=== PATIENT | male | born 1950 | race Caucasian/White ===

== ENCOUNTER 2017-09-27 10:20 | Outpatient (CLI) | payer MEDICARE, MEDICAID ==
[2017-09-27 11:56] LABS: INR-International Normal Ratio 1.1; Prothrombin Time 14.7 SEC (12.0-14.7)
[2017-09-27 11:57] LABS: Hemoglobin 9.9 g/dL (14.0-18.0); Mean Corpuscular HGB CONC 29.8 g/dL (32.0-36.0); Mean Corpuscular Hemoglobin 26.7 pg (27.0-31.0); Mean Corpuscular Volume 89.7 fl (80.0-94.0); Mean Platelet Volume 7.7 fL (7.4-10.4); PTT 30.7 SEC (22.9-36.1); Platelet Count 237 thou/uL (130-400); RBC Distribution Width 13.4 % (11.5-14.5); Red Blood Cell (RBC) Count 3.72 mill/uL (4.70-6.10); White Blood Cell (WBC) Count 5.2 thou/uL (4.8-10.8)
[2017-09-27 12:17] LABS: ALT (SGPT) 16 U/L (8-55); AST (SGOT) 13 U/L (5-34); Albumin 3.8 g/dL (3.4-4.8); Alkaline Phosphatase 51 U/L (40-150); Anion Gap 13 mmol/L (10-20); BUN (Urea Nitrogen) 22 mg/dL (8.4-25.7); Bilirubin, Total 0.5 mg/dL (0.2-1.2); Calc. Creatinine Clearance 0 mL/min (70-130); Calcium 9.1 mg/dL (7.8-10.44); Carbon Dioxide 29 mmol/L (23-31); Chloride 103 mmol/L (98-107); Estimated GFR-MDRD 48; Globulin 2.6 g/dL (2.4-3.5); Glucose 131 mg/dL (80-115); Potassium 4.1 mmol/L (3.5-5.1); Protein, Total 6.4 g/dL (5.8-8.1); Sodium 141 mmol/L (136-145)
--- NOTE | 2017-09-27 15:31 | EKG ---
Test Reason : Blood Pressure : / mmHG Vent. Rate : 074 BPM Atrial Rate : 074 BPM P-R Int : 186 ms QRS Dur : 096 ms QT Int : 408 ms P-R-T Axes : 031 119 050 degrees QTc Int : 452 ms Normal sinus rhythm Low voltage QRS Left posterior fascicular block Cannot rule out Anterior infarct (cited on or before 19-JUL-2013) Abnormal ECG Confirmed by GIOVANNY MOY ([id number]) on 09/27/2017 3:30:55 PM Referred By: HI Confirmed By:GIOVANNY MOY
== END 2017-09-27 10:21 | disposition home or self-care (01) ==
LOC: LABBT 10:20
PROVIDERS: ATTEND Internal Medicine Cardiovascular Disease
DX: Z01.818 Encounter for other preprocedural examination (principal); R94.39 Abnormal result of other cardiovascular function study
CPT/HCPCS: 80053; 85027; 85610; 85730; 93005; 93010

== ENCOUNTER 2017-09-29 05:52 | Day surgery (SDC) | payer MEDICARE, MEDICAID ==
[2017-09-27 10:54] VITALS: BMI 40.1
[2017-09-29] MEDS ORDERED: Lidocaine 1% (PF) 30 ML VIAL ONE (06:43)
[2017-09-29] MEDS ORDERED: Promethazine 25 MG TAB ONE (06:49)
[2017-09-29] MEDS ORDERED: Diazepam 5 MG TAB ONE (06:49)
[2017-09-29 07:09] LABS: Cardiac Risk 3.7 (Less than 4.5)
[2017-09-29] MEDS ORDERED: Fentanyl 100 MCG/2 ML VIAL ONE (07:12)
[2017-09-29] MEDS ORDERED: Midazolam HCl 2 mg/2 ml Vial ONE (07:14)
[2017-09-29] MEDS ORDERED: Heparin 10,000 UNITS/1 ML VIAL ONE (07:54)
[2017-09-29] MEDS ORDERED: Iopamidol 370 76% 100 ML VIAL ONE (09:11)
== END 2017-09-29 13:10 | disposition home or self-care (01) ==
LOC: CCL 05:52
PROVIDERS: ATTEND Internal Medicine Cardiovascular Disease
PROC: 4A023N7 Measurement of Cardiac Sampling and Pressure, Left Heart, Percutaneous Approach (ICD-10-PCS; principal; 2017-09-29)
DX: I25.10 Atherosclerotic heart disease of native coronary artery without angina pectoris (principal); I25.2 Old myocardial infarction; I11.0 Hypertensive heart disease with heart failure; I50.20 Unspecified systolic (congestive) heart failure; E11.9 Type 2 diabetes mellitus without complications; E78.5 Hyperlipidemia, unspecified; Z79.82 Long term (current) use of aspirin; Z79.84 Long term (current) use of oral hypoglycemic drugs; Z79.899 Other long term (current) drug therapy; Z87.891 Personal history of nicotine dependence; Z82.49 Family history of ischemic heart disease and other diseases of the circulatory system
CPT/HCPCS: 76942; 80061; 85347; 93458; 93571; C1760; C1769 ×3; 99152; J0153; J1644; J2001; J2250; J3010

== ENCOUNTER 2018-11-30 11:54 | Inpatient (IN) | payer MEDICARE, MEDICAID ==
[2018-11-30 12:23] LABS: INR-International Normal Ratio 1.2; PTT 30.9 SEC (22.9-36.1); Prothrombin Time 14.9 SEC (12.0-14.7)
--- NOTE | 2018-11-30 12:23 | CT ---
CT HEAD NONCONTRAST: HISTORY: Altered mental status. FINDINGS: No comparison. There is no evidence of acute intracranial hemorrhage or infarct. Mild chronic ischemi c small vessel disease within the periventricular white matter. Physiologic calcification at the basal ganglia. No mass effect or shift of midline structures. Visualized paranasal sinuses remain wel l aerated. IMPRESSION: No acute intracranial abnormalities are demonstrated. Findings were called to Dr. Martínez in the emergency department at 1220 hours. Code CR. Transcribed Date/Time: 11/30/2018 12:26 PM
[2018-11-30 12:25] LABS: #Eosinphils 0.2 thou/uL (0.0-0.7); #Lymphocytes 0.5 thou/uL (1.20-3.40); #Monocytes 0.5 thou/uL (0.11-0.59); #Neutrophils 4.1 thou/uL (1.40-6.50); %Eosinophils 3.2 % (0.0-10.0); %Lymphocytes 10.2 % (21.0-51.0); %Monocytes 9.4 % (0.0-10.0); %Neutrophils 77.2 % (42.0-75.0); Hemoglobin 10.4 g/dL (14.0-18.0); Mean Corpuscular HGB CONC 29.6 g/dL (32.0-36.0); Mean Corpuscular Volume 81.3 fL (78.0-98.0); Mean Platelet Volume 9.5 fL (7.4-10.4); Platelet Count 216 thou/uL (130-400); RBC Distribution Width 19.7 % (11.5-14.5); Red Blood Cell (RBC) Count 4.33 mill/uL (4.70-6.10); White Blood Cell (WBC) Count 5.3 thou/uL (4.8-10.8)
[2018-11-30 12:43] LABS: ALT (SGPT) 10 U/L (8-55); AST (SGOT) 17 U/L (5-34); Albumin 4.3 g/dL (3.4-4.8); Alkaline Phosphatase 82 U/L (40-150); Anion Gap 14 mmol/L (10-20); BUN (Urea Nitrogen) 19 mg/dL (8.4-25.7); Calc. Creatinine Clearance 0 mL/min (70-130); Calcium 9.5 mg/dL (7.8-10.44); Carbon Dioxide 30 mmol/L (23-31); Chloride 99 mmol/L (98-107); Estimated GFR-MDRD 44; Globulin 2.9 g/dL (2.4-3.5); Potassium 3.8 mmol/L (3.5-5.1); Protein, Total 7.2 g/dL (5.8-8.1); Sodium 139 mmol/L (136-145)
[2018-11-30 12:46] LABS: Elliptocytes SLIGHT = 2-5 cells (100X) (0-1/hpf); Glucose 36 mg/dL (80-115); Hypochromia SLIGHT = 6-15 cells (100X) (0-5/hpf); MDiff Complete? YES; Ovalocytes SLIGHT = 2-5 cells (100X) (0-1/hpf); Platelet Morphology Comment Appears Adequate; Polychromasia SLIGHT = 2-3 cells (100X) (0-2/hpf)
[2018-11-30] MEDS ORDERED: Dextrose 50% Abboject 50 ML SYRINGE ONE (12:52)
--- NOTE | 2018-11-30 14:02 | CT ---
CT CERVICAL SPINE WITHOUT IV CONTRAST: HISTORY: Neck pain. FINDINGS: There is loss of cervical lordosis with mild reversal. Multilevel degenerative changes are seen with bilateral neural foraminal stenosis at several levels. No fracture, subluxation, or facet malalignm ent is identified. IMPRESSION: Cervical spondylosis. POS: OFF
[2018-11-30] MEDS ORDERED: HumaLOG 300 UNITS/3 ML VIAL SC PRN (16:14)
[2018-11-30] MEDS ORDERED: Dextrose 5% in Water 1,000 ML IV PRN (16:14)
[2018-11-30] MEDS ORDERED: Dextrose 50% Abboject 50 ML SYRINGE SLOW IVP PRN (16:14)
[2018-11-30] MEDS ORDERED: Senokot S 8.6-50 MG TAB PO PRN (16:29)
[2018-11-30] MEDS ORDERED: Acetaminophen 325 MG TAB PO PRN (16:29)
[2018-11-30] MEDS ORDERED: HYDROcodone/Acetaminophen 5/325 mg Tablet PO PRN (16:29)
[2018-11-30] MEDS: Famotidine 20 MG TAB PO SCH (20:08)
--- NOTE | 2018-12-01 00:30 | HP ---
PRIMARY CARE PHYSICIAN: Dr. Rasheeda Eldridge in [place] CHIEF COMPLAINT: Evaluation of falls, impaired speech, weakness, family reports complaining of right-sided weakness and pain. HISTORY OF PRESENT ILLNESS: Mr. Sawyer is a 68-year-old male, who reported to the emergency room for evaluation of weakness, which really started 3 days ago, but worsened significantly today. Family said that he had slurred speech, was not acting right, was kept putting his head down, reported not feeling well. Reports chronic back pain with the pain that radiates down. He says his right leg is usually worse. The patient takes his blood sugar reading every day and reports yesterday it was 78 and today said it was 100, because his [id number] thought he was having a stroke today, so they called EMS and they brought him to the emergency room. When he initially evaluated, the patient's blood sugar read at 43, was given one amp of D50 and it has responded his blood sugar and he has also eaten. His blood sugar at last check was 78. Reports that he is on metformin 1000 mg twice a day and glipizide. The patient has a past medical history pertinent for coronary artery disease, hypertension, diabetes, and back surgery. Reports that he had a positive stress test, eventually wore a LifeVest, was transitioned off that by Dr. Solares, and eventually received defibrillator. Initial CT of the brain and cervical spine, no acute findings. NIH initially positive for a right leg drift and some dysarthria. The patient subsequently will be admitted to observation for further management. PAST MEDICAL HISTORY: ST-elevation myocardial infarction, diabetes mellitus, hypertension, systolic heart failure, and dyslipidemia. PAST SURGICAL HISTORY: Stent placement, pacemaker insertion, and two back surgeries for lumbar spine. FAMILY HISTORY: Negative for stroke or cardiac. ALLERGIES: NONE. SOCIAL HISTORY: He lives with his [id number]. REVIEW OF SYSTEMS: A 10-point review of systems is reviewed and as above, otherwise negative unless mentioned in the HPI. PHYSICAL EXAMINATION: VITAL SIGNS: Blood pressure is 144/91, pulse is 87, respirations are 20, pO2 sats of 98% on room air, and temperature 97.8. CONSTITUTIONAL: The patient is nontoxic-appearing. He is alert and oriented x3. HEENT: Head is atraumatic and normocephalic. Eyes; eyelids are normal to inspection. Pupils are equally round and reactive to light. ENT, mouth exam is normal. Mucous membranes are moist. Has poor dentition. NECK: Trachea is midline. Normal range of motion. RESPIRATORY/CHEST: Breath sounds are clear. Symmetrical movement is noted. CARDIOVASCULAR: Regular heart rate and rhythm. Heart sounds are normal. The patient does have a defibrillator, pacemaker present in the left upper chest. ABDOMEN: Nontender. Bowel sounds are heard. BACK: Normal inspection. No CVA tenderness. EXTREMITIES: Lower extremity, inspection is normal. Range of motion is normal. Motor strength is normal. Sensation is intact. Pedal pulses are equal bilaterally. NEUROLOGIC: The patient is oriented to person, place, and time. Speech has some dysarthria. Cranial nerves 2 through 12 are grossly intact. He does answer questions, but per family, he does not always know the answer to his specific health questions and family does state that his mentation is not quite at baseline. SKIN: Warm and dry. Normal in color. PSYCH: Has a normal affect. PERTINENT LABORATORY DATA: Sodium is 139, potassium 3.8, chloride is 99, carbon dioxide is 30, gap is 14, BUN is 19, creatinine is 1.58, estimated GFR is 44, glucose is currently 78, and calcium is 9.5. Liver enzymes are unremarkable. Troponin x1 is undetectable. White blood cell count is 5.3, hemoglobin is 10.4, hematocrit is 35.2, and platelet count is 216. PT 14.9, PTT is 30.9, and INR is 1.2. DIAGNOSTIC DATA: Cervical spine CT with cervical spondylosis. Head CT, no acute intracranial abnormalities. EKG in the emergency room shows normal sinus rhythm, beats per minute 82, conduction normal, ST segments normal, T-waves normal, axis is normal. ASSESSMENT AND PLAN: 1. Encephalopathy, most likely related to hypoglycemia, but concerning for right-sided deficits in fact that he is not quite it is baseline mentation after given glucose today. The fact that has been going on for several days is worrisome. We will therefore obtain an MRI if possible with his defibrillator, carotid Dopplers, and echocardiogram. 2. Hypoglycemia. We will hold his glipizide. We will add a sliding scale insulin as per coverage as needed, a.c. and at bedtime Accu-Cheks. We will re-start Glucophage in the morning if tolerated. 3. Hypertension. We will re-start home medications. We will trend. 4. Hyperlipidemia. We will re-check lipids in the morning. We will also check an A1c. 5. Deep venous thrombosis and gastrointestinal prophylaxis will be started. 6. Hospital course will depend on clinical findings. Job ID: [id number]
[2018-12-01 04:12] VITALS: BMI 38.0
[2018-12-01 05:03] LABS: #Eosinphils 0.2 thou/uL (0.0-0.7); #Lymphocytes 0.7 thou/uL (1.20-3.40); #Monocytes 0.5 thou/uL (0.11-0.59); #Neutrophils 3.3 thou/uL (1.40-6.50); %Basophils 0.8 % (0.0-1.0); %Eosinophils 3.3 % (0.0-10.0); %Lymphocytes 14.2 % (21.0-51.0); %Monocytes 9.8 % (0.0-10.0); Hemoglobin A1c 3.9 % (4.0-6.0); Mean Corpuscular HGB CONC 29.9 g/dL (32.0-36.0); Mean Corpuscular Hemoglobin 24.2 pg (27.0-31.0); Mean Platelet Volume 9.5 fL (7.4-10.4); Platelet Count 210 thou/uL (130-400); RBC Distribution Width 19.5 % (11.5-14.5); Red Blood Cell (RBC) Count 4.12 mill/uL (4.70-6.10); White Blood Cell (WBC) Count 4.6 thou/uL (4.8-10.8)
[2018-12-01 05:20] LABS: ALT (SGPT) Less than 7 U/L (8-55); AST (SGOT) 14 U/L (5-34); Albumin 3.9 g/dL (3.4-4.8); Alkaline Phosphatase 78 U/L (40-150); Anion Gap 10 mmol/L (10-20); BUN (Urea Nitrogen) 19 mg/dL (8.4-25.7); Bilirubin, Total 0.9 mg/dL (0.2-1.2); Calc. Creatinine Clearance 83 mL/min (70-130); Calcium 9.4 mg/dL (7.8-10.44); Carbon Dioxide 33 mmol/L (23-31); Cardiac Risk 3.1 (Less than 4.5); Chloride 100 mmol/L (98-107); Cholesterol 78 mg/dl (< 200 Desired); Estimated GFR-MDRD 49; Glucose 104 mg/dL (80-115); HDL Cholesterol 25 mg/dL (>60 Neg Risk); LDL Cholesterol, Calculated 39 mg/dL; Potassium 3.8 mmol/L (3.5-5.1); Protein, Total 6.9 g/dL (5.8-8.1); Sodium 139 mmol/L (136-145); Triglycerides 72 mg/dL (Less than 150)
--- NOTE | 2018-12-01 07:00 | ULT ---
CAROTID ULTRASOUND WITH GRAYSCALE AND DOPPLER DUPLEX COLORFLOW IMAGING SPECTRAL ANALYSIS PERFORMED: CLINICAL INDICATION: TIA. FINDINGS: There is no significant atherosclerotic calcification of the carotid arteries. PEAK SYSTOLIC VELOCITY (CM/S): Right CCA 62 Left CCA 64 Right ICA 57 Left ICA 44 There is antegrade flow within the visualized bilateral vertebral arteries. IMPRESSION: 1. No hemodynamically significant stenosis of the right internal carotid artery. 2. No hemodynamically significant stenosis of the left internal carotid artery. POS: CRISTAL
[2018-12-01] MEDS: Famotidine 20 MG TAB PO SCH ×2 (08:37→20:51)
[2018-12-01] MEDS ORDERED: Furosemide 40 MG/4 ML VIAL SLOW IVP SCH (09:00)
--- NOTE | 2018-12-01 11:09 | RAD ---
TWO VIEW CHEST: Comparison: 02-11-17 Indication: Elevated BNP. Shortness of breath. FINDINGS: There is enlargement of the cardiac silhouette and pulmonary vasculature. Hazy density at the inferio r left chest indicates mild pleural fluid. There is a single lead AICD traversing the left subclavian region with tip overlying the expected region of the right ventricle. IMPRESSION: Evidence of decompensated CHF. POS: AHC
[2018-12-01] MEDS ORDERED: Carvedilol 3.125 MG TAB PO SCH (17:45)
--- NOTE | 2018-12-01 18:31 | PRG ---
DATE OF SERVICE: 12/01/2018 SUBJECTIVE: Mr. Sawyer is a very pleasant 68-year-old male with past medical history significant for ischemic cardiomyopathy with last EF estimated at 20% to 25%, type 2 diabetes mellitus, coronary artery disease with left heart catheterization on 09/2017, which revealed a distal LAD 90% stenosis, not amenable to PCI, and hypertension, who presented to the hospital at the behest of his family with altered mental status and slurred speech. The patient's speech has returned to baseline, but he does remain somewhat confused. He denies any chest pain to me. He denies any shortness of breath at this time. He did have some difficulties ambulating with a walking program this morning. OBJECTIVE: VITAL SIGNS: Blood pressure 108/72, pulse is 88, O2 saturation is 94% on room air. GENERAL: The patient is awake and alert, he is oriented to person and place but not to time. He is conversative and pleasant. HEENT: Head is atraumatic and normocephalic. Mucous membranes are moist. NECK: No appreciable JVD. No carotid bruits. Trachea is midline. CV: S1 and S2. Regular rate and rhythm. No appreciable murmurs, rubs, or gallops. LUNGS: Regular respiratory rate and pattern, decreased breath sounds at the bases. No rhonchi or wheezes. No appreciable crackles. ABDOMEN: Positive bowel sounds, obese, soft, nontender. No organomegaly. EXTREMITIES: Trace edema bilaterally. Extremities appear warm and well perfused. There are no ulcers. SKIN: Warm and dry. No rashes. NEURO: His cranial nerves 2 through 12 appear to be intact. I can appreciate no focal weaknesses on either side at this time. LABORATORY DATA: White blood cell count 4.6, hemoglobin 10, hematocrit 33, platelets are 210. Sodium 139, potassium 3.8, carbon dioxide 33, creatinine 1.43, bilirubin 0.9, AST 14, ALT 7, alkaline phosphatase 78. BNP 2741. Total cholesterol 78, LDL 39, HDL 25, triglycerides 72. ASSESSMENT: 1. Altered mental status, likely secondary to combination of transient hypoglycemia at presentation, as well as possible cerebrovascular accident. 2. Ischemic cardiomyopathy s/p single chamber ICD, with worsening EF, now 10% to 15%. 3. Acute on chronic systolic congestive heart failure exacerbation, BNP >2700 4. Coronary artery disease, last left heart catheterization performed 09/2017, which showed a distal 90% LAD, a 70%, diagonal lesion with a patent stent in the mid LAD. 5. Type 2 diabetes mellitus. 6. Peripheral vascular disease. 7. Hypotension. 8. patient with single-chamber [employer] implantable cardioverter defibrillator , with normal functioning, per interrogation. 9. Chronic renal insufficiency. 10. several episodes of NSVT per device interrogation PLAN: At this time, Neurology is recommending full anticoagulation, appreciate recommendations. Given the patient's worsening EF, we will consult Cardiology for optimization of his heart failure medications in addition to appropriate full anticoagulation selection for this patient, if deemed appropriate. He may also be a candidate for Entresto. We will continue IV diuresis as kidney function permits, along with close monitoring of electrolytes. Interrogation of patient 's ICD today revealed normal functioning and several short runs of nonsustained VT. Given the patient's numerous comorbidities at this time, the patient does meet inpatient criteria. Further recommendations based on hospital course. Job ID: [id number] MTDD
[2018-12-01] MEDS: Lisinopril 10 MG TAB PO SCH (20:51)
[2018-12-01] MEDS: Simvastatin 40 MG TAB PO SCH (20:51)
--- NOTE | 2018-12-02 00:04 | CON ---
DATE OF CONSULTATION: 12/01/2018 CONSULTING PHYSICIAN: Hospitalist Services IMPRESSION: 1. Probable small vessel stroke resulting in some mild dysarthria and right facial droop. 2. Congestive heart failure with an ejection fraction of around 15%. 3. Diabetes. 4. Hypertension. 5. Hyperlipidemia. 6. Aspirin failure. PLAN: 1. I would suggest anticoagulation given his poor EF. 2. PT to assess his gait stability. HISTORY OF PRESENT ILLNESS: Mr. Sawyer is a 68-year-old man who was noted by the family to have some sudden change in his speech. They noticed some facial droop and that he was slurring his words. They brought him in for evaluation. He had a CT of the brain, which showed some small-vessel ischemic changes, but nothing acute. His laboratory studies were unremarkable including his lipid ratio of 3.1. His carotid ultrasound does not show any extracranial stenosis. He has an AICD implant and could not have an MRI. He had an echocardiogram done earlier with a preliminary result as noted above. PAST MEDICAL HISTORY: As listed above. ALLERGIES: NONE REPORTED. SOCIAL HISTORY: He dips tobacco. FAMILY HISTORY: Noncontributory. REVIEW OF SYSTEMS: Ten-system review of systems is otherwise unremarkable other than joint pain. PHYSICAL EXAMINATION: GENERAL: He is overweight, elderly man, lying in bed, in no distress. VITAL SIGNS: Blood pressure 103/65, pulse 70, respirations 20. HEENT: Pupils are equal and reactive. Conjunctivae clear. Oropharynx clear. NECK: Supple. No lymphadenopathy. EXTREMITIES: No cyanosis. NEUROLOGIC: He was alert and cooperative. His speech was mildly dysarthric. Cranial nerve exam showed a flattening of the right nasolabial fold. Sensation was intact. No fix or drift was noted. No abnormal movements were seen. Gait was not tested at this time. Plantar responses were downgoing. SUMMARY: This is an elderly man with multiple risk factors and a very poor ejection fraction. He would be at high risk for cardioembolic event. Would consult with Dr. Solares as to his choice of anticoagulation. Job ID: [id number]
[2018-12-02 06:09] LABS: #Eosinphils 0.1 thou/uL (0.0-0.7); #Lymphocytes 0.7 thou/uL (1.20-3.40); #Monocytes 0.5 thou/uL (0.11-0.59); #Neutrophils 3.3 thou/uL (1.40-6.50); %Basophils 0.6 % (0.0-1.0); %Eosinophils 2.8 % (0.0-10.0); %Lymphocytes 15.6 % (21.0-51.0); %Monocytes 10.8 % (0.0-10.0); %Neutrophils 70.2 % (42.0-75.0); Anisocytosis SLIGHT = 6-15 cells (100X) (0-5/hpf); Hemoglobin 9.8 g/dL (14.0-18.0); Hypochromia SLIGHT = 6-15 cells (100X) (0-5/hpf); MDiff Complete? YES; Mean Corpuscular HGB CONC 29.8 g/dL (32.0-36.0); Mean Corpuscular Hemoglobin 24.3 pg (27.0-31.0); Mean Corpuscular Volume 81.5 fL (78.0-98.0); Mean Platelet Volume 9.7 fL (7.4-10.4); Platelet Count 204 thou/uL (130-400); RBC Distribution Width 19.9 % (11.5-14.5); Red Blood Cell (RBC) Count 4.03 mill/uL (4.70-6.10); White Blood Cell (WBC) Count 4.7 thou/uL (4.8-10.8)
[2018-12-02 06:20] LABS: ALT (SGPT) 27 U/L (8-55); AST (SGOT) 40 U/L (5-34); Albumin 3.9 g/dL (3.4-4.8); Alkaline Phosphatase 76 U/L (40-150); Anion Gap 13 mmol/L (10-20); BUN (Urea Nitrogen) 21 mg/dL (8.4-25.7); Bilirubin, Total 1.3 mg/dL (0.2-1.2); Calc. Creatinine Clearance 88 mL/min (70-130); Calcium 9.4 mg/dL (7.8-10.44); Carbon Dioxide 27 mmol/L (23-31); Chloride 101 mmol/L (98-107); Estimated GFR-MDRD 55; Glucose 136 mg/dL (80-115); Potassium 3.9 mmol/L (3.5-5.1); Protein, Total 6.9 g/dL (5.8-8.1); Sodium 137 mmol/L (136-145)
--- NOTE | 2018-12-02 08:48 | PDOC.PN ---
- Subjective Encounter Start Date: 12/02/18 Encounter Start Time: 11:30 Subjective: Patient without further confusion. No pain. No N/V. -: No weakness/numbness. Occ difficulty word finding but -: almost back to baseline. - Objective Resuscitation Status - Order Detail: 11/30/18 16:29 Resuscitation Status Routine Co-Sign Provider: Resuscitation Status: FULL: Full Resuscitation Discussed with: Patient Additional comments: Would like son and daughters to be surrogate decision makers MAR Reviewed: Yes Vital Signs & Weight: Vital Signs (12 hours) Temp Pulse Resp BP BP Pulse Ox 12/02/18 03:12 97.6 F 89 20 127/81 98 12/01/18 23:50 97.5 F L 87 15 116/70 93 L 12/01/18 20:51 115/77 Weight Weight 255 lb 8 oz I&O: 12/01/18 12/02/18 12/03/18 06:59 06:59 06:59 Intake Total 450 1080 Output Total 400 Balance 450 680 Result Diagrams: 12/02/18 04:35 12/02/18 04:35 Additional Labs: Accuchecks 12/01/18 12/01/18 12/01/18 20:56 17:04 10:20 POC Glucose 175 H 186 H 128 H Phys Exam - Physical Examination Constitutional: NAD HEENT: moist MMs Respiratory: no wheezing, no rales, no rhonchi Cardiovascular: RRR Gastrointestinal: soft, positive bowel sounds Musculoskeletal: no edema Neurological: non-focal, moves all 4 limbs Psychiatric: normal affect, A&O x 3 Dx/Plan (1) Acute ischemic stroke Code(s): I63.9 - CEREBRAL INFARCTION, UNSPECIFIED Status: Acute Comment: symptoms improving, neurology recommending anticoagulation due to severely depressed EF, Lovenox started, cardiology consulted for recommendation on oral anticoagulant (2) Systolic CHF Code(s): I50.20 - UNSPECIFIED SYSTOLIC (CONGESTIVE) HEART FAILURE Status: Chronic Comment: EF 10-15% (3) CAD Code(s): 414.00 - CORON ATHEROSCLER NOS TYPE VESSEL, [place] OR GRAFT Status: Chronic (4) Diabetes mellitus type 2 Code(s): E11.9 - TYPE 2 DIABETES MELLITUS WITHOUT COMPLICATIONS Status: Chronic (5) Dyslipidemia Code(s): E78.5 - HYPERLIPIDEMIA, UNSPECIFIED Status: Chronic (6) Hypertension Code(s): I10 - ESSENTIAL (PRIMARY) HYPERTENSION Status: Chronic Qualifiers: Hypertension type: essential hypertension Qualified Code(s): I10 - Essential (primary) hypertension - Plan cont current plan of care, PT/OT, DVT proph w/lovenox cardiology consultation pending * . - Discharge Day Encounter end time: 10:40
[2018-12-02] MEDS ORDERED: Enoxaparin Sodium 100 MG/ML SYRINGE SC SCH (09:00)
[2018-12-02] MEDS ORDERED: Enoxaparin Sodium 120 MG/0.8 ML SYRINGE SC SCH (09:00)
[2018-12-02] MEDS: Furosemide 40 MG/4 ML VIAL SLOW IVP SCH ×2 (10:12→16:18)
[2018-12-02] MEDS: Aspirin 81 mg Enteric Coated Tablet PO SCH (10:12)
[2018-12-02] MEDS: Famotidine 20 MG TAB PO SCH ×2 (10:12→22:25)
[2018-12-02] MEDS: Spironolactone 25 MG TAB PO SCH (10:12)
[2018-12-02] MEDS: Carvedilol 3.125 MG TAB PO SCH ×2 (10:13→16:18)
--- NOTE | 2018-12-02 11:31 | PQF ---
CLINICAL DOCUMENTATION IMPROVEMENT CLARIFICATION FORM: ICD-10 Updated PLEASE DO AN ADDENDUM TO THE PROGRESS NOTE WITH ANY DOCUMENTATION UPDATES OR ADDITIONS AND CARRY THROUGH TO DC SUMMARY. THANK YOU. DATE: 12/02/18 ATTN: DR. DUMONT Please exercise your independent, professional judgment in responding to the clarification form. Clinical indicators are provided on the bottom of this form for your review Please check appropriate box(s): [ X ] Encephalopathy: Type: [ X ] Acute [ ] Subacute [ ] Chronic Etiology: [ ] Hypertensive [ X ] Metabolic [ ] Toxic [ ] Hepatic with Coma [ ] Hepatic w/o Coma [ ] Hypoxic [ ] Septic [ ] Drug induced: [ ] Unspecified [ ] in the setting of underlying dementia [ ] Other (please specify) [ ] Transient Alteration of Awareness [ ] Other diagnosis [ ] Unable to determine In addition, please specify: Present on Admission (POA): [ X ] Yes [ ] No [ ] Unable to determine For continuity of documentation, please document condition throughout progress notes and discharge summary. Thank You. 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 All Rights Reserved GILBERTO [email or web address] Office: [phone] [facility]
[2018-12-02] MEDS: Apixaban 5 MG TAB PO SCH (22:24)
[2018-12-02] MEDS: Lisinopril 10 MG TAB PO SCH (22:25)
[2018-12-02] MEDS: Simvastatin 40 MG TAB PO SCH (22:25)
--- NOTE | 2018-12-03 00:56 | CON ---
DATE OF CONSULTATION: HISTORY OF PRESENT ILLNESS: The patient is a 68-year-old gentleman with a history of an ischemic cardiomyopathy, who presented with right-sided weakness with altered mental status and right-sided weakness. The patient has a long history of coronary artery disease, he is status post PTCA and stent placement in 2012. He had a stent placed into the mid LAD. He underwent a repeat catheterization in 2018. He was felt to have medical therapy. The patient was found to have a 70% diagonal lesion, 90% distal LAD lesion, 50% mid LAD lesion and 70% left circumflex lesion. The patient was in usual state of health when he suddenly developed altered mental status and right-sided weakness. PAST MEDICAL HISTORY: 1. Coronary artery disease. 2. Hypertension. 3. Diabetes mellitus. 4. Dyslipidemia. PAST SURGICAL HISTORY: Two back surgeries. SOCIAL HISTORY: Nonsmoker. FAMILY HISTORY: Positive family history of coronary artery disease. ALLERGIES: NO KNOWN DRUG ALLERGIES. MEDICATIONS: See nursing list. PHYSICAL EXAMINATION: GENERAL: Obese gentleman, in no acute distress. VITAL SIGNS: Blood pressure of 111/80. NECK: No jugular venous distention. LUNGS: Clear to auscultation. HEART: Regular rate and rhythm. Normal S1, S2. No murmurs. ABDOMEN: Distended. EXTREMITIES: Showed mild bilateral edema. NEUROLOGIC: Weakness in his right lower extremity. LABORATORY RESULTS: Sodium 137, potassium 3.9, chloride 101, bicarb 27, BUN 21, creatinine is 1.3, glucose 136. His white blood cell count is 4.7, hemoglobin 9.8, platelets are 204. IMAGING: His EKG revealed him to have normal sinus rhythm with Q-waves suggestive of previous anterior infarct. IMPRESSION: 1. Status post cerebrovascular accident. 2. History of percutaneous transluminal coronary angioplasty and stent placement. 3. Ischemic cardiomyopathy. 4. History of automatic implantable cardioverter-defibrillator placement. 5. Hypertension. 6. Diabetes mellitus. 7. Dyslipidemia. 8. Morbid obesity. This gentleman has suffered a cerebrovascular accident. He underwent an echocardiogram, which revealed him to have a severe decrease in left ventricular systolic function. The patient may have a thromboembolism. The patient will be placed on Eliquis and continue on low-dose aspirin. We will follow this patient with you through his hospitalization. Job ID: [id number] [facility]
[2018-12-03] MEDS: Furosemide 40 MG/4 ML VIAL SLOW IVP SCH ×2 (06:43→13:45)
[2018-12-03] MEDS: Carvedilol 3.125 MG TAB PO SCH ×2 (09:02→17:16)
[2018-12-03] MEDS: Apixaban 5 MG TAB PO SCH ×2 (09:02→21:15)
[2018-12-03] MEDS: Aspirin 81 mg Enteric Coated Tablet PO SCH (09:02)
[2018-12-03] MEDS: Famotidine 20 MG TAB PO SCH ×2 (09:02→21:15)
[2018-12-03] MEDS: Spironolactone 25 MG TAB PO SCH (09:03)
[2018-12-03] MEDS: HYDROcodone/Acetaminophen 5/325 mg Tablet PO PRN ×2 (09:03→17:16)
[2018-12-03] MEDS ORDERED: metFORMIN 500 MG TAB PO SCH (10:30)
--- NOTE | 2018-12-03 10:54 | PRG ---
DATE OF SERVICE: 12/03/2018 SUBJECTIVE: The patient feels okay. He feels like he is close to his baseline. His primary complaint today is that he is having pain in his right foot. This preceded his admission for about a week. He denies any antecedent injury. OBJECTIVE: VITAL SIGNS: Temperature 97.7, pulse 86, respirations 18, O2 saturation 96% on room air, and blood pressure 122/86. GENERAL APPEARANCE: Age-appropriate male, in no distress. He was lying in bed, sleeping. Dips snuff in his mouth. Easily awakens. Otherwise, pleasant and conversant. HEENT: PERRL. No OP lesions. HEART: Regular rate and rhythm without murmurs. LUNGS: Diminished, but clear bilaterally. No wheezes or rales. ABDOMEN: Slightly protuberant, but nontender, nondistended. EXTREMITIES: Have chronic stasis dermatitis with onychomycosis and onycholysis. Pulses are present, slightly diminished. He has no significant tenderness to palpation on the right foot (indicates that primarily painful when he tries to stand on it). IMPRESSION AND PLAN: 1. Acute ischemic stroke, likely thromboembolic from cardiomyopathy on Eliquis, appears to be largely recovered. He is considering rehab. He is currently on aspirin and a statin. 2. Severe hypoglycemia appears to be improved. His blood sugars are within the reasonable range, although slightly high. He is only getting sliding-scale insulin. We will completely discontinue his glipizide and keep that off, but we will start low-dose metformin. 3. Cardiomyopathy with ejection fraction of 10% to 15%, followed by Cardiology. He has a defibrillator in place. He will stay on the Eliquis. 4. History of coronary artery disease. Again, statin and aspirin, stable. 5. Dyslipidemia. Continue the statin. 6. Hypertension. Continue home medications. 7. Right foot pain. X-ray, pending results. Consider physical therapy assistance. 8. Disposition. The patient is interested in going to rehab. We will put in a bilingual patient support caseworker consult for evaluation. Job ID: [id number]
--- NOTE | 2018-12-03 15:44 | RAD ---
RIGHT FOOT: 12/03/18 Three views. HISTORY: Foot pain. Enthesophytes from the plantar calcaneus. The tarsals are intact. The metatarsals appear intact. The re is mild extension at the MTP joints. IMPRESSION: No acute finding. POS: OFF
[2018-12-03] MEDS: metFORMIN 500 MG TAB PO SCH (17:16)
[2018-12-03] MEDS: Simvastatin 40 MG TAB PO SCH (21:15)
[2018-12-03] MEDS: Lisinopril 10 MG TAB PO SCH (21:15)
[2018-12-04] MEDS: Furosemide 40 MG/4 ML VIAL SLOW IVP SCH ×2 (06:15→13:57)
[2018-12-04] MEDS: metFORMIN 500 MG TAB PO SCH ×2 (08:30→17:58)
[2018-12-04] MEDS: Carvedilol 3.125 MG TAB PO SCH ×2 (08:30→17:58)
[2018-12-04] MEDS: HYDROcodone/Acetaminophen 5/325 mg Tablet PO PRN (08:30)
[2018-12-04] MEDS: Aspirin 81 mg Enteric Coated Tablet PO SCH (08:30)
[2018-12-04] MEDS: Famotidine 20 MG TAB PO SCH (08:30)
[2018-12-04] MEDS: Apixaban 5 MG TAB PO SCH (08:30)
[2018-12-04] MEDS: Spironolactone 25 MG TAB PO SCH (08:30)
--- NOTE | 2018-12-04 11:50 | PDOC.PN ---
- Subjective Encounter Start Date: 12/04/18 Encounter Start Time: 11:49 Patient seen and examined, no new issues or complaints - Objective Resuscitation Status - Order Detail: 11/30/18 16:29 Resuscitation Status Routine Co-Sign Provider: Resuscitation Status: FULL: Full Resuscitation Discussed with: Patient Additional comments: Would like son and daughters to be surrogate decision makers Vital Signs & Weight: Vital Signs (12 hours) Temp Pulse Resp BP Pulse Ox 12/04/18 08:00 97.3 F L 76 16 113/69 98 12/04/18 07:33 92 L 12/04/18 04:00 97.5 F L 71 18 105/72 95 12/04/18 00:00 98.5 F 72 18 120/70 94 L Weight Weight 263 lb I&O: 12/03/18 12/04/18 12/05/18 06:59 06:59 06:59 Intake Total 960 600 300 Output Total 1475 1200 Balance -515 600 -900 Result Diagrams: 12/02/18 04:35 12/02/18 04:35 Additional Labs: Accuchecks 12/04/18 12/04/18 12/03/18 06:00 03:25 20:11 POC Glucose 96 80 105 12/03/18 12/03/18 12/03/18 17:25 10:36 06:03 POC Glucose 124 H 166 H 122 H Phys Exam - Physical Examination Constitutional: NAD HEENT: PERRLA, moist MMs, sclera anicteric Neck: no nodes, no JVD, supple Respiratory: no wheezing, no rales, no rhonchi Cardiovascular: RRR, no significant murmur, no rub Gastrointestinal: soft, non-tender, no distention Musculoskeletal: pulses present, edema present (trace) Dx/Plan (1) Acute ischemic stroke Code(s): I63.9 - CEREBRAL INFARCTION, UNSPECIFIED Status: Acute Comment: symptoms improving, neurology recommending anticoagulation due to severely depressed EF, Lovenox started, cardiology consulted for recommendation on oral anticoagulant (2) Hypertension Code(s): I10 - ESSENTIAL (PRIMARY) HYPERTENSION Status: Chronic Qualifiers: Hypertension type: essential hypertension Qualified Code(s): I10 - Essential (primary) hypertension (3) Benign hypertension Code(s): I10 - ESSENTIAL (PRIMARY) HYPERTENSION Status: Chronic Comment: At goal on current meds (4) CAD Code(s): 414.00 - CORON ATHEROSCLER NOS TYPE VESSEL, AUGUSTINE OR GRAFT Status: Chronic (5) Cardiomyopathy Code(s): I42.9 - CARDIOMYOPATHY, UNSPECIFIED Status: Chronic Comment: Compensated and stable- EF improving- continue to titrate up on EB meds as tolerated (6) Diabetes mellitus type 2 Code(s): E11.9 - TYPE 2 DIABETES MELLITUS WITHOUT COMPLICATIONS Status: Chronic (7) Dyslipidemia Code(s): E78.5 - HYPERLIPIDEMIA, UNSPECIFIED Status: Chronic - Plan * pending rehab arrangements * DC to rehab once arrangements made * case and plan d/w patient and family at length, they understand and agree with this plan
[2018-12-04 15:48] VITALS: BP 114/71; TEMP 97.6
--- NOTE | 2018-12-06 01:58 | DIS ---
DATE OF ADMISSION: 12/01/2018 DATE OF DISCHARGE: 12/04/2018 ADMITTING DIAGNOSES: Slurred speech as well as right-sided weakness and pain. Coronary artery disease, diabetes mellitus, hypertension, systolic heart failure, dyslipidemia. DISCHARGE DIAGNOSES: Slurred speech, weakness resolved. Coronary artery disease, stable. Hypertension, stable. Diabetes mellitus, stable. Systolic heart failure, stable. HOSPITAL COURSE: This is a 68-year-old male reported to the emergency room complaining of weakness for about 3 days. The patient was admitted to Internal Medicine Team, also followed very closely by Cardiology and the Medicine Team. The patient had a carotid Doppler study done, cervical spine CT, brain CT done as well as a physical therapy evaluation. The patient at point in time of discharge was stable. Denied any nausea, vomiting, diarrhea, constipation, chest pain, fevers, chills, or shortness of breath. The patient's cervical spine CT shows cervical spondylolysis as well as brain CT showing no acute intracranial processes. The patient had an echocardiogram performed which showed an ejection fraction of 10% to 15% with restrictive cardiomyopathy filling pattern and significant systolic heart failure. The patient at point in time of discharge, supposed to be discharged to rehab. The patient's condition was stable. Family at bedside. At point in time of discharge, the patient had no complaints. Case and plan discussed with the patient and family at length. They understood and agreed with this plan. FOLLOWUP: Follow up with PCP and Cardiology within 2 weeks. DISPOSITION: Rehab. MEDICATIONS: See MAR. ACTIVITY: As tolerated with assistance as needed. DIET: Low-fat, low-calorie, high-fiber diet. CONDITION: Stable. PROGNOSIS: Poor. Case and plan once again discussed with the patient and family at length. They understood and agreed with this plan. Job ID: [id number]
== END 2018-12-04 20:10 | DRG 64 ==
LOC: ERS 11:54 → 2SW 15:51 → OBSVTOIN 12-01 17:46 → 2SE 12-02 08:50
PROVIDERS: ADMIT Internal Medicine; ATTEND Internal Medicine
DX: I63.9 Cerebral infarction, unspecified (principal); G93.41 Metabolic encephalopathy; I50.23 Acute on chronic systolic (congestive) heart failure; G81.91 Hemiplegia, unspecified affecting right dominant side; I13.0 Hypertensive heart and chronic kidney disease with heart failure and stage 1 through stage 4 chronic kidney disease, or unspecified chronic kidney disease; I47.1 Supraventricular tachycardia; E78.5 Hyperlipidemia, unspecified; E11.649 Type 2 diabetes mellitus with hypoglycemia without coma; I25.10 Atherosclerotic heart disease of native coronary artery without angina pectoris; I25.5 Ischemic cardiomyopathy; R47.1 Dysarthria and anarthria; E11.51 Type 2 diabetes mellitus with diabetic peripheral angiopathy without gangrene; N18.9 Chronic kidney disease, unspecified; M79.671 Pain in right foot; R29.703 NIHSS score 3; E11.22 Type 2 diabetes mellitus with diabetic chronic kidney disease; E66.01 Morbid (severe) obesity due to excess calories; Z68.37 Body mass index [BMI] 37.0-37.9, adult; F17.220 Nicotine dependence, chewing tobacco, uncomplicated; Z95.5 Presence of coronary angioplasty implant and graft; Z95.810 Presence of automatic (implantable) cardiac defibrillator; Z79.82 Long term (current) use of aspirin; Z79.899 Other long term (current) drug therapy; Z79.84 Long term (current) use of oral hypoglycemic drugs; I25.2 Old myocardial infarction
CPT/HCPCS: 36415; 36416; 70450; 71046; 72125; 80053; 80061; 83036; 83880; 84443; 84484; 85025; 85610; 85730; 93005; 93306; 93880; 96374; J1650; J1940

== ENCOUNTER 2019-04-10 20:29 | Observation (INO) | payer MEDICARE, MEDICAID ==
[2019-04-10 21:47] LABS: #Eosinphils 0.1 thou/uL (0.0-0.7); #Lymphocytes 0.5 thou/uL (1.20-3.40); #Monocytes 0.4 thou/uL (0.11-0.59); %Basophils 0.5 % (0.0-1.0); %Eosinophils 2.7 % (0.0-10.0); %Lymphocytes 9.6 % (21.0-51.0); %Monocytes 7.7 % (0.0-10.0); %Neutrophils 79.6 % (42.0-75.0); Hemoglobin 11.2 g/dL (14.0-18.0); Mean Corpuscular HGB CONC 31.4 g/dL (32.0-36.0); Mean Corpuscular Volume 92.2 fL (78.0-98.0); Mean Platelet Volume 8.5 fL (7.4-10.4); Platelet Count 167 thou/uL (130-400); RBC Distribution Width 15.3 % (11.5-14.5); Red Blood Cell (RBC) Count 3.88 mill/uL (4.70-6.10); White Blood Cell (WBC) Count 5.1 thou/uL (4.8-10.8)
[2019-04-10 22:06] LABS: Anion Gap 16 mmol/L (10-20); BUN (Urea Nitrogen) 29 mg/dL (8.4-25.7); Calc. Creatinine Clearance 0 mL/min (70-130); Calcium 9.4 mg/dL (7.8-10.44); Carbon Dioxide 24 mmol/L (23-31); Chloride 102 mmol/L (98-107); Estimated GFR-MDRD 46; Potassium 3.8 mmol/L (3.5-5.1); Sodium 138 mmol/L (136-145)
[2019-04-10 22:14] LABS: Glucose 53 mg/dL (80-115)
[2019-04-11 03:09] VITALS: BMI 36.6
[2019-04-11] MEDS ORDERED: Dextrose 50% Abboject 50 ML SYRINGE SLOW IVP PRN (08:53)
[2019-04-11] MEDS ORDERED: Dextrose 5% in Water 1,000 ML IV PRN (08:53)
[2019-04-11] MEDS ORDERED: Ondansetron ODT 4 MG TAB PO PRN (08:54)
[2019-04-11] MEDS ORDERED: Ondansetron PF 4 MG/2 ML Vial IVP PRN (08:54)
[2019-04-11] MEDS ORDERED: Senokot S 8.6-50 MG TAB PO PRN (08:54)
[2019-04-11] MEDS ORDERED: Acetaminophen 325 MG TAB PO PRN (08:54)
[2019-04-11] MEDS ORDERED: Calcium Carbonate 500 MG ChewTAB PO PRN (08:54)
[2019-04-11] MEDS ORDERED: Prevnar 13-Val Conj/PF 0.5 ML SYRINGE IM ONE (09:00)
[2019-04-11] MEDS ORDERED: Aspirin 81 mg Enteric Coated Tablet PO SCH (09:00)
--- NOTE | 2019-04-11 10:01 | SS ---
DATE OF ADMISSION: 04/11/2019 DATE OF DISCHARGE: 04/11/2019 CHIEF COMPLAINT: Altered mentation. HISTORY OF PRESENT ILLNESS: The patient is a 69-year-old white male with diabetes mellitus type 2, on glipizide and metformin, presented to the emergency room with altered mentation. The altered mentation started around 8 a.m. yesterday. The daughter checked his blood sugar and it was 41 at that time. He is currently on 5 mg glipizide twice a day along with 1000 mg metformin b.i.d. He monitors his blood sugar almost on a daily basis. He states that his blood sugar usually runs around 100 range. His speech was also slurry. No fever, chills, nausea, vomiting, double vision, blurring of vision, weakness, numbness of any of his extremities reported. No recent changes in diet or weight loss reported. PAST MEDICAL HISTORY: 1. Coronary artery disease, status post MS. 2. Diabetes mellitus type 2. 3. Hypertension. 4. Dyslipidemia. 5. Congestive heart failure with ejection fraction of 10% to 15% range with diastolic dysfunction. 6. Moderate mitral regurgitation. 7. Sick sinus syndrome, status post pacemaker. 8. History of TIA. PAST SURGICAL HISTORY: 1. Pacemaker placement. 2. Coronary stent placement. 3. Back surgery. ALLERGIES: NO KNOWN DRUG ALLERGIES. HOME MEDICATIONS: 1. Glipizide 5 mg b.i.d. 2. Metformin 1000 mg b.i.d. 3. Zocor 40 mg at bedtime. 4. Aldactone 25 mg daily. 5. Coreg 3.125 mg b.i.d. 6. Meloxicam 7.5 mg daily. 7. Lisinopril 10 mg at bedtime. 8. Lasix 40 mg b.i.d. 9. Cetirizine 10 mg daily. 10. Aspirin 81 mg daily. 11. Tylenol as needed. SOCIAL HISTORY: The patient currently lives at home with his family. He makes his own decision with the help of his family. No current use of tobacco, alcohol, or drug use. FAMILY HISTORY: Negative for heart disease. REVIEW OF SYSTEMS: All other review of systems were reviewed and were found negative. PHYSICAL EXAMINATION: VITAL SIGNS: In the emergency room showed temperature 97.4, respiration 18, pulse of 90, blood pressure of 146/82, O2 saturation 97% on room air. GENERAL: A 69-year-old male, in no apparent distress. Mentation back to his baseline. HEENT: Head, atraumatic and normocephalic. Sclerae anicteric. Moist mucous membranes. No oral lesion. NECK: Supple. No JVD. No carotid bruit. LUNGS: Clear to auscultation bilaterally. No wheezing, rales, or rhonchi. HEART: S1, S2 present. Regular rate and rhythm. No rubs or gallops. ABDOMEN: Soft, nontender. Bowel sounds present. EXTREMITIES: Trace edema in bilateral lower extremity. SKIN: Warm and dry. LYMPH NODES: No palpable lymph nodes in the neck. PERIPHERAL VASCULAR: Radial pulses palpable bilaterally. MUSCULOSKELETAL: No joint swelling, tenderness. LABORATORY FINDINGS: WBC 5.1, hemoglobin 11.2, hematocrit 35.7, platelet 167. Chemistry showed sodium 138, potassium 3.8, chloride 102, bicarb 24, BUN 29, creatinine 1.5. A1c was 5. Last blood sugar was 107. IMPRESSION: 1. Metabolic encephalopathy secondary to hypoglycemia, resolved. 2. Coronary artery disease, status post MS. 3. History of transient ischemic attack. 4. Hypertension. 5. Hyperlipidemia. 6. Chronic kidney disease, stage 3. 7. Chronic anemia. 8. Obesity with a BMI of 36.6. 9. Chronic systolic and diastolic heart failure, ejection fraction 10% to 15% range. 10. History of pacemaker for sick sinus syndrome. PLAN: The patient will probably be discharged later after lunch, if his blood sugar remained stable. Glipizide and metformin will be discontinued. All other medications will be left unchanged. He was advised to get a repeat basic metabolic profile after 1 week. Lasix, Aldactone, and lisinopril will be resumed at discharge. Continue carvedilol. He was advised to continue monitoring his blood sugar. If his blood sugar persistently remained elevated, then metformin can probably be restarted. Plan of care was discussed with the patient in detail. He stated understanding. Follow up with primary care physician in 1 week. He used to see Dr. Rasheeda Eldridge, in the past. Job ID: [id number]
[2019-04-11 11:57] VITALS: BP 128/79; TEMP 97.5
[2019-04-11] MEDS ORDERED: Carvedilol 3.125 MG TAB PO SCH (17:00)
[2019-04-11] MEDS ORDERED: Atorvastatin Calcium 20 MG TAB PO SCH (21:00)
[2019-04-11] MEDS ORDERED: Lisinopril 10 MG TAB PO SCH (21:00)
== END 2019-04-11 15:50 | disposition home or self-care (01) ==
LOC: ERS 20:29 → T4-B 04-11 01:15
PROVIDERS: ADMIT Hospitalist; ATTEND Hospitalist
DX: E11.649 Type 2 diabetes mellitus with hypoglycemia without coma (principal); G93.41 Metabolic encephalopathy; I25.10 Atherosclerotic heart disease of native coronary artery without angina pectoris; I25.2 Old myocardial infarction; E78.5 Hyperlipidemia, unspecified; I13.0 Hypertensive heart and chronic kidney disease with heart failure and stage 1 through stage 4 chronic kidney disease, or unspecified chronic kidney disease; E11.22 Type 2 diabetes mellitus with diabetic chronic kidney disease; N18.3 Chronic kidney disease, stage 3 (moderate); I50.42 Chronic combined systolic (congestive) and diastolic (congestive) heart failure; D63.1 Anemia in chronic kidney disease; I34.0 Nonrheumatic mitral (valve) insufficiency; I49.5 Sick sinus syndrome; E66.9 Obesity, unspecified; Z68.36 Body mass index [BMI] 36.0-36.9, adult; Z79.82 Long term (current) use of aspirin; Z79.84 Long term (current) use of oral hypoglycemic drugs; Z79.899 Other long term (current) drug therapy; Z86.73 Personal history of transient ischemic attack (TIA), and cerebral infarction without residual deficits; Z95.0 Presence of cardiac pacemaker; Z95.5 Presence of coronary angioplasty implant and graft
CPT/HCPCS: 80048; 82962 ×2; 83036; 85025; 97139; 99285; G0378 ×2; 36415; 36416

== ENCOUNTER 2019-08-28 06:41 | Day surgery (SDC) | payer MEDICARE, MEDICAID ==
[2019-08-25 13:24] VITALS: BMI 31.1
--- NOTE | 2019-08-28 09:49 | OP ---
DATE OF PROCEDURE: 08/28/2019 PROCEDURES PERFORMED: 1. Esophagogastroduodenoscopy with biopsy. 2. Colonoscopy with snare polypectomy. PREOPERATIVE DIAGNOSES: 1. Blood in the stool. 2. Gastroesophageal reflux. 3. Anemia. DESCRIPTION OF PROCEDURE: Informed consent was obtained from the patient. He was sedated with total intravenous anesthesia. The bite block was placed and the endoscope was advanced easily to the second portion of the duodenum and retroflexion was performed in the stomach. The esophagus was normal. The GE junction was normal. The stomach had an 8-mm white base ulcer in the antrum. This had inflamed edges and biopsies were taken in 4 quadrants from around the ulcer edges. Biopsies were also taken from the antrum and body of the stomach to rule out H pylori. The remainder of the gastric mucosa was normal including retroflexed views. The pylorus and first and second portions of the duodenum were normal. The patient was turned around. Rectal exam was performed and was normal. The colonoscope was advanced to the terminal ileum without difficulty. The mucosa of the terminal ileum was normal. The ileocecal valve and appendiceal orifice were clearly identified. There was mild diverticulosis in the left and right colon. I removed 2 polyps in the transverse colon colon, measuring 4 to 5 mm each. These were removed by cold snare. I removed 2 polyps from the descending colon, measuring 5 mm and 6 mm. These were removed by cold snare polypectomy. I removed one 4-mm polyp from the sigmoid colon and one 3-mm polyp from the rectum. These 2 polyps were sent together in the same pathology specimen. Retroflexed views in the rectum were normal other than small hemorrhoids. IMPRESSION: 1. 8-mm white based ulcer with inflamed edges, biopsied. This was in the gastric antrum. 2. Otherwise normal esophagogastroduodenoscopy. Antrum and body biopsies were also taken to rule out Helicobacter pylori. 3. Mild diverticulosis in the left and right colon. 4. Two polyps measuring 4 to 5 mm were removed from the transverse colon. 5. Two polyps measuring 5 to 6 mm were removed from the descending colon. 6. A polyp was removed from the sigmoid colon and a polyp was removed from the rectum, measuring 3 to 4 mm. All the polyps were removed by ice cold snare. RECOMMENDATIONS: 1. Await histopathology. 2. Repeat colonoscopy in 3 years if 4 or more of the polyps are adenomatous. Repeat in 5 years if 1 or 2 of the polyps are adenomas. 3. Start pantoprazole 40 mg daily. 4. Follow up in [facility] Clinic in 1 month. Job ID: [id number]
[2019-08-28] MEDS ORDERED: PROPOFOL 200 MG/20 ML VIAL ONE (09:54)
[2019-08-28] MEDS ORDERED: Lidocaine 1% PF 5 ML VIAL ONE (09:54)
== END 2019-08-28 09:48 | disposition home or self-care (01) ==
LOC: SDC 06:41
PROVIDERS: ATTEND Internal Medicine Gastroenterology
PROC: 0DB78ZX Excision of Stomach, Pylorus, Via Natural or Artificial Opening Endoscopic, Diagnostic (ICD-10-PCS; principal; 2019-08-28)
PROC: 0DBM8ZX Excision of Descending Colon, Via Natural or Artificial Opening Endoscopic, Diagnostic (ICD-10-PCS; 2019-08-28)
PROC: 0DBL8ZX Excision of Transverse Colon, Via Natural or Artificial Opening Endoscopic, Diagnostic (ICD-10-PCS; 2019-08-28)
PROC: 0DBN8ZX Excision of Sigmoid Colon, Via Natural or Artificial Opening Endoscopic, Diagnostic (ICD-10-PCS; 2019-08-28)
PROC: 0DBP8ZX Excision of Rectum, Via Natural or Artificial Opening Endoscopic, Diagnostic (ICD-10-PCS; 2019-08-28)
DX: D12.3 Benign neoplasm of transverse colon (principal); D12.4 Benign neoplasm of descending colon; D12.5 Benign neoplasm of sigmoid colon; K57.31 Diverticulosis of large intestine without perforation or abscess with bleeding; K29.51 Unspecified chronic gastritis with bleeding; B96.81 Helicobacter pylori [H. pylori] as the cause of diseases classified elsewhere; K64.9 Unspecified hemorrhoids; D64.9 Anemia, unspecified; K21.9 Gastro-esophageal reflux disease without esophagitis; R79.89 Other specified abnormal findings of blood chemistry; I25.2 Old myocardial infarction; I10 Essential (primary) hypertension; Z86.73 Personal history of transient ischemic attack (TIA), and cerebral infarction without residual deficits; Z79.82 Long term (current) use of aspirin; Z79.899 Other long term (current) drug therapy; Z95.810 Presence of automatic (implantable) cardiac defibrillator
CPT/HCPCS: 88305; 88312

== ENCOUNTER 2020-02-02 12:29 | Outpatient (CLI) | payer MEDICARE, MEDICAID ==
--- NOTE | 2020-02-02 13:19 | RAD ---
XR Lumbar Spine 2 Or 3 View HISTORY: For 2 months ago. Low back pain COMPARISON: None. FINDINGS: Multilevel degenerative changes are seen. There is a anterior wedge compression of the supe rior endplate of L1 vertebral body with 30% loss of height. IMPRESSION: Age-indeterminate compression fracture of L1.
== END 2020-02-02 12:30 | disposition home or self-care (01) ==
LOC: BICRAD 12:29
PROVIDERS: ATTEND Physician Assistant
DX: M54.5 Low back pain (principal)
CPT/HCPCS: 72100

== ENCOUNTER 2020-08-28 16:25 | Emergency (ER) | payer MEDICARE, MEDICAID ==
--- NOTE | 2020-08-28 17:49 | ULT ---
RIGHT LOWER EXTREMITY DOPPLER VENOUS ULTRASOUND PROVIDED CLINICAL HISTORY: Right foot swelling and redness TECHNIQUE: Grayscale and color Doppler sonography with spectral analysis was performed of the right common femor al, femoral, popliteal, posterior tibial, greater saphenous and profunda femoral veins. FINDINGS: There is normal compression, flow and augmentation seen within the deep venous structures o f the right lower extremity. IMPRESSION: No sonographic evidence for right lower extremity deep venous thrombosis.
== END 2020-08-28 18:30 | disposition home or self-care (01) ==
LOC: ERS 16:25
DX: M79.89 Other specified soft tissue disorders (principal); E11.9 Type 2 diabetes mellitus without complications; K21.9 Gastro-esophageal reflux disease without esophagitis; I10 Essential (primary) hypertension; F17.220 Nicotine dependence, chewing tobacco, uncomplicated; Z86.73 Personal history of transient ischemic attack (TIA), and cerebral infarction without residual deficits; Z79.899 Other long term (current) drug therapy; Z79.84 Long term (current) use of oral hypoglycemic drugs

== ENCOUNTER 2021-12-03 00:33 | Emergency (ER) | payer MEDICARE, MEDICAID ==
[2021-12-03] MEDS ORDERED: Lidocaine Viscous Sol 2% 15 ml UD Cup ONE (03:02)
[2021-12-03] MEDS ORDERED: HYDROcodone/Acetaminophen 5/325 mg Tablet ONE (03:12)
== END 2021-12-03 03:15 | disposition home or self-care (01) ==
LOC: ERS 00:33
DX: K04.7 Periapical abscess without sinus (principal); K02.9 Dental caries, unspecified; E11.9 Type 2 diabetes mellitus without complications; K21.9 Gastro-esophageal reflux disease without esophagitis; I10 Essential (primary) hypertension; F17.220 Nicotine dependence, chewing tobacco, uncomplicated; Z86.73 Personal history of transient ischemic attack (TIA), and cerebral infarction without residual deficits
CPT/HCPCS: 41800

== ENCOUNTER 2021-12-15 00:58 | Emergency (ER) | payer MEDICARE, MEDICAID ==
[2021-12-15 02:26] LABS: #Eosinphils 0.2 thou/uL (0.0-0.7); #Lymphocytes 1.3 thou/uL (1.20-3.40); #Monocytes 0.9 thou/uL (0.11-0.59); #Neutrophils 5.6 thou/uL (1.40-6.50); %Basophils 0.2 % (0.0-1.0); %Eosinophils 2.1 % (0.0-10.0); %Lymphocytes 16.4 % (21.0-51.0); %Monocytes 11.2 % (0.0-10.0); %Neutrophils 70.1 % (42.0-75.0); Hemoglobin 13.3 g/dL (14.0-18.0); Mean Corpuscular HGB CONC 34.3 g/dL (32.0-36.0); Mean Corpuscular Hemoglobin 33.1 pg (27.0-31.0); Mean Corpuscular Volume 96.5 fL (78.0-98.0); Mean Platelet Volume 7.3 fL (7.4-10.4); Platelet Count 204 thou/uL (130-400); RBC Distribution Width 12.4 % (11.5-14.5); Red Blood Cell (RBC) Count 4.02 mill/uL (4.70-6.10)
[2021-12-15 02:48] LABS: ALT (SGPT) 47 U/L (8-55); AST (SGOT) 24 U/L (5-34); Albumin 3.8 g/dL (3.4-4.8); Alkaline Phosphatase 72 U/L (40-110); Anion Gap 14 mmol/L (10-20); BUN (Urea Nitrogen) 24 mg/dL (8.4-25.7); Bilirubin, Total 0.8 mg/dL (0.2-1.2); Calc. Creatinine Clearance 0 mL/min (70-130); Calcium 8.8 mg/dL (7.8-10.44); Carbon Dioxide 26 mmol/L (23-31); Chloride 99 mmol/L (98-107); Globulin 2.7 g/dL (2.4-3.5); Glucose 196 mg/dL (83-110); Potassium 3.9 mmol/L (3.5-5.1); Protein, Total 6.5 g/dL (5.8-8.1); Sodium 135 mmol/L (136-145)
[2021-12-15 02:51] LABS: CRP (Inflammatory) 4.24 mg/dL (= or < 0.5); Uric Acid 8.5 mg/dL (3.5-7.2)
[2021-12-15] MEDS ORDERED: Colchicine 0.6 MG TAB ONE (03:26)
== END 2021-12-15 03:33 | disposition home or self-care (01) ==
LOC: ERS 00:58
DX: M10.9 Gout, unspecified (principal); E11.9 Type 2 diabetes mellitus without complications; K21.9 Gastro-esophageal reflux disease without esophagitis; I10 Essential (primary) hypertension; F17.220 Nicotine dependence, chewing tobacco, uncomplicated
CPT/HCPCS: 36415; 80053; 84550; 85025; 85652; 86140

== ENCOUNTER 2022-03-22 09:44 | Emergency (ER) | payer MEDICARE, MEDICAID ==
[2022-03-22 10:40] LABS: #Eosinphils 0.2 thou/uL (0.0-0.7); #Monocytes 0.5 thou/uL (0.11-0.59); #Neutrophils 4.4 thou/uL (1.40-6.50); %Basophils 0.5 % (0.0-1.0); %Eosinophils 2.6 % (0.0-10.0); %Lymphocytes 16.9 % (21.0-51.0); %Monocytes 8.1 % (0.0-10.0); Hemoglobin 15.2 g/dL (14.0-18.0); Mean Corpuscular Hemoglobin 31.7 pg (27.0-31.0); Mean Platelet Volume 8.1 fL (7.4-10.4); Platelet Count 176 thou/uL (130-400); RBC Distribution Width 12.7 % (11.5-14.5); White Blood Cell (WBC) Count 6.1 thou/uL (4.8-10.8)
[2022-03-22] MEDS ORDERED: Aspirin 81 mg Enteric Coated Tablet ONE (10:53)
[2022-03-22] MEDS ORDERED: Aspirin Chewable 81 MG TAB ONE (10:57)
[2022-03-22 11:01] LABS: ALT (SGPT) 30 U/L (8-55); AST (SGOT) 24 U/L (5-34); Alkaline Phosphatase 81 U/L (40-110); Anion Gap 18 mmol/L (10-20); BUN (Urea Nitrogen) 23 mg/dL (8.4-25.7); Bilirubin, Total 1.4 mg/dL (0.2-1.2); Calc. Creatinine Clearance 0 mL/min (70-130); Calcium 9.3 mg/dL (7.8-10.44); Carbon Dioxide 23 mmol/L (23-31); Chloride 93 mmol/L (98-107); Estimated GFR 41; Globulin 3.4 g/dL (2.4-3.5); Glucose 517 mg/dL (83-110); Lipase 24 U/L (8-78); Magnesium 1.9 mg/dL (1.6-2.6); Potassium 4.6 mmol/L (3.5-5.1); Protein, Total 7.4 g/dL (5.8-8.1); Sodium 129 mmol/L (136-145)
== END 2022-03-22 13:49 | disposition home or self-care (01) ==
LOC: ERS 09:44
DX: R07.89 Other chest pain (principal); E11.65 Type 2 diabetes mellitus with hyperglycemia; K21.9 Gastro-esophageal reflux disease without esophagitis; I10 Essential (primary) hypertension; Z86.73 Personal history of transient ischemic attack (TIA), and cerebral infarction without residual deficits; F17.220 Nicotine dependence, chewing tobacco, uncomplicated
CPT/HCPCS: 36416; 71045; 80053; 83690; 83735; 84443; 84484; 85025; 93005; 94760

== ENCOUNTER 2022-04-22 13:05 | Emergency (ER) | payer MEDICARE, MEDICAID | END 2022-04-22 14:59 | disposition home or self-care (01) | LOC: ERS 13:05 | DX: L03.115 Cellulitis of right lower limb (principal) ==

== ENCOUNTER 2022-05-16 13:54 | Emergency (ER) | payer MEDICARE, MEDICAID ==
[2022-05-16 14:45] LABS: #Eosinphils 0.2 thou/uL (0.0-0.7); #Lymphocytes 1.2 thou/uL (1.20-3.40); #Monocytes 0.5 thou/uL (0.11-0.59); #Neutrophils 5.1 thou/uL (1.40-6.50); %Basophils 0.2 % (0.0-1.0); %Eosinophils 2.4 % (0.0-10.0); %Monocytes 6.9 % (0.0-10.0); %Neutrophils 73.6 % (42.0-75.0); Hemoglobin 13.9 g/dL (14.0-18.0); Mean Corpuscular Hemoglobin 31.9 pg (27.0-31.0); Mean Corpuscular Volume 96.6 fL (78.0-98.0); Mean Platelet Volume 8.3 fL (7.4-10.4); Platelet Count 187 thou/uL (130-400); RBC Distribution Width 12.9 % (11.5-14.5); Red Blood Cell (RBC) Count 4.37 mill/uL (4.70-6.10); White Blood Cell (WBC) Count 6.9 thou/uL (4.8-10.8)
[2022-05-16 15:03] LABS: ALT (SGPT) 30 U/L (8-55); AST (SGOT) 25 U/L (5-34); Albumin 3.8 g/dL (3.4-4.8); Alkaline Phosphatase 65 U/L (40-110); Anion Gap 14 mmol/L (10-20); BUN (Urea Nitrogen) 17 mg/dL (8.4-25.7); Calc. Creatinine Clearance 0 mL/min (70-130); Calcium 9.1 mg/dL (7.8-10.44); Carbon Dioxide 25 mmol/L (23-31); Chloride 99 mmol/L (98-107); Estimated GFR 44; Globulin 3.6 g/dL (2.4-3.5); Glucose 256 mg/dL (83-110); Potassium 4.5 mmol/L (3.5-5.1); Protein, Total 7.4 g/dL (5.8-8.1); Sodium 133 mmol/L (136-145)
[2022-05-16] MEDS ORDERED: Ketorolac Tromethamine 30 MG/ML VIAL ONE (15:19)
[2022-05-16] MEDS ORDERED: Morphine 4 MG/ML VIAL ONE (15:20)
== END 2022-05-16 16:00 | disposition home or self-care (01) ==
LOC: ERS 13:54
DX: L03.115 Cellulitis of right lower limb (principal); M79.89 Other specified soft tissue disorders; E11.9 Type 2 diabetes mellitus without complications; K21.9 Gastro-esophageal reflux disease without esophagitis; I10 Essential (primary) hypertension; Z86.73 Personal history of transient ischemic attack (TIA), and cerebral infarction without residual deficits; F17.220 Nicotine dependence, chewing tobacco, uncomplicated; Z79.899 Other long term (current) drug therapy; Z79.82 Long term (current) use of aspirin; Z79.84 Long term (current) use of oral hypoglycemic drugs
CPT/HCPCS: 36415; 80053; 83605; 85025; 87040; 96374; 96375; J1885; J2270

== ENCOUNTER 2022-06-21 21:35 | Emergency (ER) | payer MEDICARE, MEDICAID ==
[2022-06-21 22:09] LABS: #Eosinphils 0.1 thou/uL (0.0-0.7); #Lymphocytes 0.9 thou/uL (1.20-3.40); #Monocytes 0.6 thou/uL (0.11-0.59); #Neutrophils 5.4 thou/uL (1.40-6.50); %Basophils 0.1 % (0.0-1.0); %Eosinophils 0.8 % (0.0-10.0); %Lymphocytes 12.5 % (21.0-51.0); %Monocytes 8.4 % (0.0-10.0); %Neutrophils 78.1 % (42.0-75.0); Hemoglobin 13.4 g/dL (14.0-18.0); Mean Corpuscular HGB CONC 31.5 g/dL (32.0-36.0); Mean Corpuscular Hemoglobin 31.2 pg (27.0-31.0); Mean Platelet Volume 8.2 fL (7.4-10.4); Platelet Count 173 10x3/uL (130-400); RBC Distribution Width 13.4 % (11.5-14.5); White Blood Cell (WBC) Count 6.8 10x3/uL (4.8-10.8)
[2022-06-21 22:33] LABS: ALT (SGPT) 36 U/L (8-55); AST (SGOT) 19 U/L (5-34); Albumin 3.8 g/dL (3.4-4.8); Alkaline Phosphatase 59 U/L (40-110); Anion Gap 11 mmol/L (10-20); BUN (Urea Nitrogen) 16 mg/dL (8.4-25.7); Bilirubin, Total 1.2 mg/dL (0.2-1.2); Calc. Creatinine Clearance 0 mL/min (70-130); Calcium 9.1 mg/dL (7.8-10.44); Carbon Dioxide 25 mmol/L (23-31); Chloride 103 mmol/L (98-107); Estimated GFR 48; Globulin 3.1 g/dL (2.4-3.5); Glucose 229 mg/dL (83-110); Potassium 4.2 mmol/L (3.5-5.1); Protein, Total 6.9 g/dL (5.8-8.1); Sodium 135 mmol/L (136-145)
[2022-06-22] MEDS ORDERED: Morphine 4 MG/ML VIAL ONE (00:16)
== END 2022-06-22 00:44 | disposition home or self-care (01) ==
LOC: ERS 21:35
DX: I73.9 Peripheral vascular disease, unspecified (principal); I11.0 Hypertensive heart disease with heart failure; I50.9 Heart failure, unspecified; F17.220 Nicotine dependence, chewing tobacco, uncomplicated; K21.9 Gastro-esophageal reflux disease without esophagitis; E11.9 Type 2 diabetes mellitus without complications
CPT/HCPCS: 36415; 80053; 83880; 85025; 86140; 93005; 93926; 93970; J2270

== ENCOUNTER 2022-06-22 12:03 | Inpatient (IN) | payer MEDICARE, MEDICAID ==
[2022-06-22] MEDS ORDERED: Iopamidol-370 76% 500 ML 1 ML ONE (14:21)
[2022-06-22] MEDS ORDERED: Lidocaine 1% PF 5 ML VIAL ONE (15:59)
[2022-06-22 17:24] LABS: #Eosinphils 0.1 thou/uL (0.0-0.7); #Monocytes 0.8 thou/uL (0.11-0.59); #Neutrophils 4.7 thou/uL (1.40-6.50); %Eosinophils 0.9 % (0.0-10.0); %Lymphocytes 15.4 % (21.0-51.0); %Monocytes 11.8 % (0.0-10.0); %Neutrophils 71.9 % (42.0-75.0); Hemoglobin 13.4 g/dL (14.0-18.0); Mean Corpuscular HGB CONC 31.1 g/dL (32.0-36.0); Mean Corpuscular Hemoglobin 30.8 pg (27.0-31.0); Mean Platelet Volume 8.8 fL (7.4-10.4); Platelet Count 180 10x3/uL (130-400); RBC Distribution Width 13.5 % (11.5-14.5); Red Blood Cell (RBC) Count 4.36 mill/uL (4.70-6.10); White Blood Cell (WBC) Count 6.6 10x3/uL (4.8-10.8)
[2022-06-22 17:32] LABS: RBC Count-Automated (BF) 1308 /cu.mm; WBC/Nucleated-Auto (BF) 25729 /cu.mm
[2022-06-22 17:33] LABS: BF Color Yellow; Body Fluid Source Synovial Fluid; Clarity Cloudy/Turbid (Clear); Tube # EDTA
[2022-06-22 17:35] LABS: BF Segmented Neutrophils 77 %; Cell Count Non Hematic 23 %
[2022-06-22 18:07] LABS: ALT (SGPT) 30 U/L (8-55); AST (SGOT) 17 U/L (5-34); Albumin 3.7 g/dL (3.4-4.8); Alkaline Phosphatase 56 U/L (40-110); Anion Gap 12 mmol/L (10-20); BUN (Urea Nitrogen) 16 mg/dL (8.4-25.7); Bilirubin, Total 1.3 mg/dL (0.2-1.2); CK (CPK) 42 U/L (30-200); CRP (Inflammatory) 6.15 mg/dL (= or < 0.5); Calc. Creatinine Clearance 0 mL/min (70-130); Calcium 9.2 mg/dL (7.8-10.44); Carbon Dioxide 27 mmol/L (23-31); Chloride 100 mmol/L (98-107); Estimated GFR 49; Globulin 3.2 g/dL (2.4-3.5); Glucose 126 mg/dL (83-110); Potassium 4.3 mmol/L (3.5-5.1); Protein, Total 6.9 g/dL (5.8-8.1); Sodium 135 mmol/L (136-145)
[2022-06-22] MEDS ORDERED: Morphine 4 MG/ML VIAL ONE (18:19)
[2022-06-22] MEDS ORDERED: Cefepime 1 GM VIAL ONE (18:27)
[2022-06-22] MEDS ORDERED: Dextrose 50% Abboject 50 ML SYRINGE SLOW IVP PRN (18:50)
[2022-06-22] MEDS ORDERED: Dextrose 5% in Water 1,000 ML IV PRN (18:50)
[2022-06-22] MEDS ORDERED: Acetaminophen 325 MG TAB PO PRN (18:50)
[2022-06-22] MEDS ORDERED: HumaLOG 300 UNITS/3 ML VIAL SC PRN ×2 (18:53)
[2022-06-22] MEDS ORDERED: Nicotine 21 MG PATCH TD PRN (19:06)
[2022-06-22] MEDS ORDERED: VANCOMYCIN 2 GRAM/500 ML BAG 2 GM in Premix Bag 1 BAG IVPB SCH (19:30)
[2022-06-22 20:52] VITALS: BMI 38.2
[2022-06-23 05:20] LABS: #Eosinphils 0.1 thou/uL (0.0-0.7); #Lymphocytes 1.1 thou/uL (1.20-3.40); #Monocytes 0.7 thou/uL (0.11-0.59); #Neutrophils 3.9 thou/uL (1.40-6.50); %Basophils 0.2 % (0.0-1.0); %Eosinophils 2.1 % (0.0-10.0); %Lymphocytes 18.8 % (21.0-51.0); %Monocytes 11.6 % (0.0-10.0); %Neutrophils 67.4 % (42.0-75.0); Hemoglobin 13.1 g/dL (14.0-18.0); Mean Corpuscular HGB CONC 31.3 g/dL (32.0-36.0); Mean Corpuscular Hemoglobin 31.6 pg (27.0-31.0); Mean Platelet Volume 8.1 fL (7.4-10.4); Platelet Count 173 10x3/uL (130-400); RBC Distribution Width 13.4 % (11.5-14.5); Red Blood Cell (RBC) Count 4.15 mill/uL (4.70-6.10); White Blood Cell (WBC) Count 5.7 10x3/uL (4.8-10.8)
[2022-06-23] MEDS: Cefepime 1 GM in Sodium Chloride 0.9% 100 ML IVPB SCH ×2 (05:32→17:49)
[2022-06-23] MEDS: Furosemide 20 MG/2 ML VIAL SLOW IVP SCH ×2 (05:32→14:33)
[2022-06-23 05:47] LABS: Anion Gap 12 mmol/L (10-20); BUN (Urea Nitrogen) 15 mg/dL (8.4-25.7); Calc. Creatinine Clearance 76 mL/min (70-130); Calcium 8.8 mg/dL (7.8-10.44); Carbon Dioxide 27 mmol/L (23-31); Chloride 101 mmol/L (98-107); Estimated GFR 49; Glucose 98 mg/dL (83-110); Sodium 136 mmol/L (136-145)
[2022-06-23] MEDS ORDERED: Vancomycin 1 GM in Premix Bag 1 BAG IVPB SCH (08:00)
[2022-06-23] MEDS: Carvedilol 3.125 MG TAB PO SCH ×2 (10:28→17:49)
[2022-06-23] MEDS: Empagliflozin 25 MG TAB PO SCH (10:28)
[2022-06-23] MEDS: Gabapentin 100 MG CAP PO SCH (10:28)
[2022-06-23] MEDS: Aspirin 81 mg Enteric Coated Tablet PO SCH (10:28)
[2022-06-23] MEDS: Enoxaparin Sodium 40 MG/0.4 ML SYRINGE SC SCH (10:31)
[2022-06-23] MEDS ORDERED: Atorvastatin Calcium 20 MG TAB PO SCH (21:00)
[2022-06-23] MEDS ORDERED: Melatonin 3 MG TAB PO PRN (22:37)
[2022-06-24 05:35] LABS: #Eosinphils 0.2 thou/uL (0.0-0.7); #Lymphocytes 0.7 thou/uL (1.20-3.40); #Monocytes 0.4 thou/uL (0.11-0.59); #Neutrophils 3.9 thou/uL (1.40-6.50); %Basophils 0.1 % (0.0-1.0); %Eosinophils 3.1 % (0.0-10.0); %Lymphocytes 14.1 % (21.0-51.0); %Monocytes 7.2 % (0.0-10.0); %Neutrophils 75.5 % (42.0-75.0); Hemoglobin 12.5 g/dL (14.0-18.0); Mean Corpuscular HGB CONC 30.9 g/dL (32.0-36.0); Mean Corpuscular Hemoglobin 30.8 pg (27.0-31.0); Mean Corpuscular Volume 99.9 fl (78.0-98.0); Platelet Count 184 10x3/uL (130-400); RBC Distribution Width 13.2 % (11.5-14.5); Red Blood Cell (RBC) Count 4.05 mill/uL (4.70-6.10); White Blood Cell (WBC) Count 5.1 10x3/uL (4.8-10.8)
[2022-06-24] MEDS: Furosemide 20 MG/2 ML VIAL SLOW IVP SCH ×2 (05:38→14:05)
[2022-06-24 05:48] LABS: Anion Gap 14 mmol/L (10-20); BUN (Urea Nitrogen) 21 mg/dL (8.4-25.7); Calc. Creatinine Clearance 71 mL/min (70-130); Calcium 8.9 mg/dL (7.8-10.44); Carbon Dioxide 26 mmol/L (23-31); Chloride 101 mmol/L (98-107); Estimated GFR 46; Glucose 90 mg/dL (83-110); Potassium 3.9 mmol/L (3.5-5.1); Sodium 137 mmol/L (136-145)
[2022-06-24] MEDS: Aspirin 81 mg Enteric Coated Tablet PO SCH (09:30)
[2022-06-24] MEDS: Carvedilol 3.125 MG TAB PO SCH (09:30)
[2022-06-24] MEDS: Empagliflozin 25 MG TAB PO SCH (09:31)
[2022-06-24] MEDS: Gabapentin 100 MG CAP PO SCH (09:31)
[2022-06-24] MEDS: Enoxaparin Sodium 40 MG/0.4 ML SYRINGE SC SCH (09:31)
[2022-06-24 11:43] VITALS: TEMP 98.1
[2022-06-24] MEDS ORDERED: Lidocaine 5% Patch TD SCH (13:15)
[2022-06-24] MEDS ORDERED: predniSONE 5 MG TAB PO SCH (13:15)
[2022-06-24] MEDS ORDERED: Colchicine 0.6 MG TAB PO SCH (13:15)
[2022-06-24] MEDS ORDERED: Furosemide 40 MG TAB PO SCH (14:00)
[2022-06-24 15:55] VITALS: BP 96/63
[2022-06-24] MEDS ORDERED: Transdermal Patch Removal TOP SCH (21:00)
[2022-06-24] MEDS ORDERED: Colchicine 0.3 MG TAB PO SCH (21:00)
[2022-06-25] MEDS ORDERED: predniSONE 5 MG TAB PO SCH (08:00)
[2022-06-25] MEDS ORDERED: Lidocaine 5% Patch TD SCH (09:00)
== END 2022-06-24 17:25 | disposition home or self-care (01) | DRG 553 ==
LOC: ERS 12:03 → 2SW 20:39 → OBSVTOIN 06-23 11:50
PROVIDERS: ADMIT Internal Medicine; ATTEND Internal Medicine
PROC: 0S9D3ZX Drainage of Left Knee Joint, Percutaneous Approach, Diagnostic (ICD-10-PCS; principal; 2022-06-23)
DX: M10.9 Gout, unspecified (principal); I50.23 Acute on chronic systolic (congestive) heart failure; I13.0 Hypertensive heart and chronic kidney disease with heart failure and stage 1 through stage 4 chronic kidney disease, or unspecified chronic kidney disease; E87.1 Hypo-osmolality and hyponatremia; Z20.822 Contact with and (suspected) exposure to COVID-19; N18.30 Chronic kidney disease, stage 3 unspecified; M25.462 Effusion, left knee; E11.22 Type 2 diabetes mellitus with diabetic chronic kidney disease; I25.10 Atherosclerotic heart disease of native coronary artery without angina pectoris; E11.51 Type 2 diabetes mellitus with diabetic peripheral angiopathy without gangrene; F17.210 Nicotine dependence, cigarettes, uncomplicated; K21.9 Gastro-esophageal reflux disease without esophagitis; E78.5 Hyperlipidemia, unspecified; I25.5 Ischemic cardiomyopathy; Z79.899 Other long term (current) drug therapy; Z95.5 Presence of coronary angioplasty implant and graft; Z95.810 Presence of automatic (implantable) cardiac defibrillator; Z98.890 Other specified postprocedural states; Z79.82 Long term (current) use of aspirin
CPT/HCPCS: 36415; 36416; 71045; 75635; 80048; 80053; 82550; 82945; 83735; 83880; 84443; 85025; 85060; 85652; 86140; 87040; 87070; 87205; 89051; 89060; 93005; 93798; 93926; 93970; 96372; 96374; 96375; 96376; 97139; G0378; J0692; J1650; J1940; J2270; J3370; J3490; J7512; Q9967; U0003; U0005

== ENCOUNTER 2022-07-29 02:56 | Inpatient (IN) | payer MEDICARE, MEDICAID ==
[2022-07-29 03:45] LABS: #Eosinphils 0.1 thou/uL (0.0-0.7); #Lymphocytes 0.7 thou/uL (1.20-3.40); #Neutrophils 8.5 thou/uL (1.40-6.50); %Eosinophils 0.7 % (0.0-10.0); %Lymphocytes 6.9 % (21.0-51.0); %Monocytes 9.4 % (0.0-10.0); Hemoglobin 15.8 g/dL (14.0-18.0); Mean Corpuscular HGB CONC 32.7 g/dL (32.0-36.0); Mean Corpuscular Hemoglobin 30.2 pg (27.0-31.0); Mean Corpuscular Volume 92.2 fl (78.0-98.0); Mean Platelet Volume 8.6 fL (7.4-10.4); Platelet Count 209 10x3/uL (130-400); RBC Distribution Width 13.4 % (11.5-14.5); Red Blood Cell (RBC) Count 5.25 mill/uL (4.70-6.10); White Blood Cell (WBC) Count 10.2 10x3/uL (4.8-10.8)
[2022-07-29 04:07] LABS: INR-International Normal Ratio 1.1; PTT 32.1 sec (22.9-36.1); Prothrombin Time 14.2 sec (12.0-14.7)
[2022-07-29 04:08] LABS: D-Dimer Test 0.79 *mcg/mL (0.27-0.43)
[2022-07-29 04:10] LABS: ALT (SGPT) 19 U/L (8-55); AST (SGOT) 19 U/L (5-34); Albumin 4.1 g/dL (3.4-4.8); Alkaline Phosphatase 76 U/L (40-110); Anion Gap 15 mmol/L (10-20); BUN (Urea Nitrogen) 30 mg/dL (8.4-25.7); Bilirubin, Total 1.6 mg/dL (0.2-1.2); CK (CPK) 45 U/L (30-200); Calc. Creatinine Clearance 0 mL/min (70-130); Calcium 9.9 mg/dL (7.8-10.44); Carbon Dioxide 28 mmol/L (23-31); Chloride 95 mmol/L (98-107); Estimated GFR 35; Globulin 3.3 g/dL (2.4-3.5); Glucose 173 mg/dL (83-110); Lipase 56 U/L (8-78); Potassium 5.2 mmol/L (3.5-5.1); Protein, Total 7.4 g/dL (5.8-8.1); Sodium 133 mmol/L (136-145)
[2022-07-29 04:20] LABS: Bacteria/HPF None Seen HPF (None Seen); Bilirubin Negative (Negative); Blood, Urine 1+ (Negative); Clarity Clear (Clear); Glucose, Urine (Dipstick) Greater than 1000 mg/dL (Negative); Ketone, Urine Negative (Negative); Leukocyte Negative Leu/uL (Negative); Nitrite Negative (Negative); Protein, Urine (Dipstick) Negative (Neg-Trace); Squamous Epithelial 0-3 HPF (0-3); Urobilinogen Normal mg/dL (Less than 2); WBC/HPF 0-3 HPF (0-3)
[2022-07-29 05:00] LABS: SARS-CoV-2 NAA Rapid Test Not Detected (NotDetected)
[2022-07-29] MEDS ORDERED: Ondansetron ODT 4 MG TAB SL PRN (06:15)
[2022-07-29] MEDS ORDERED: Ondansetron PF 4 MG/2 ML Vial IVP PRN (06:15)
[2022-07-29 07:05] LABS: Troponin I 0.033 ng/mL (< 0.028)
[2022-07-29] MEDS ORDERED: Enoxaparin Sodium 40 MG/0.4 ML SYRINGE SC SCH (08:15)
[2022-07-29] MEDS ORDERED: Dextrose 50% Abboject 50 ML SYRINGE SLOW IVP PRN (08:43)
[2022-07-29] MEDS ORDERED: HumaLOG 300 UNITS/3 ML VIAL SC PRN ×2 (08:43)
[2022-07-29] MEDS ORDERED: Dextrose 5% in Water 1,000 ML IV PRN (08:43)
[2022-07-29] MEDS ORDERED: Enoxaparin Sodium 40 MG/0.4 ML SYRINGE ONE (09:21)
[2022-07-29] MEDS ORDERED: Nicotine 14 MG PATCH ONE (09:21)
[2022-07-29 09:23] LABS: Troponin I 0.022 ng/mL (< 0.028)
[2022-07-29] MEDS: Nicotine 14 MG PATCH TD SCH (09:27)
[2022-07-29] MEDS ORDERED: Iopamidol-370 76% 500 ML 1 ML ONE (09:54)
[2022-07-29] MEDS: Polyethylene Glycol 3350 17 GM Packet PO SCH (09:58)
[2022-07-29] MEDS ORDERED: Acetaminophen 500 MG TAB ONE (12:31)
[2022-07-29] MEDS: Acetaminophen 500 MG TAB PO PRN ×2 (12:33→20:06)
[2022-07-29] MEDS ORDERED: HumaLOG 300 UNITS/3 ML VIAL ONE (15:48)
[2022-07-29 17:42] VITALS: BMI 35.4
[2022-07-29] MEDS ORDERED: traMADol HCl 50 MG TAB PO PRN ×2 (17:50→18:25)
[2022-07-29] MEDS: Atorvastatin Calcium 20 MG TAB PO SCH (20:06)
[2022-07-29] MEDS ORDERED: Lisinopril 10 MG TAB PO SCH (21:00)
[2022-07-29] MEDS ORDERED: Colchicine 0.3 MG TAB PO SCH (21:00)
[2022-07-30 06:38] LABS: #Eosinphils 0.1 thou/uL (0.0-0.7); #Lymphocytes 0.7 thou/uL (1.20-3.40); #Monocytes 0.8 thou/uL (0.11-0.59); #Neutrophils 7.3 thou/uL (1.40-6.50); %Basophils 0.2 % (0.0-1.0); %Monocytes 8.9 % (0.0-10.0); %Neutrophils 81.9 % (42.0-75.0); Hemoglobin 13.7 g/dL (14.0-18.0); Mean Corpuscular HGB CONC 32.4 g/dL (32.0-36.0); Mean Corpuscular Hemoglobin 30.2 pg (27.0-31.0); Mean Corpuscular Volume 93.3 fl (78.0-98.0); Mean Platelet Volume 8.7 fL (7.4-10.4); Platelet Count 186 10x3/uL (130-400); RBC Distribution Width 13.3 % (11.5-14.5); Red Blood Cell (RBC) Count 4.53 mill/uL (4.70-6.10); White Blood Cell (WBC) Count 8.9 10x3/uL (4.8-10.8)
[2022-07-30 06:49] LABS: Anion Gap 16 mmol/L (10-20); BUN (Urea Nitrogen) 33 mg/dL (8.4-25.7); Calc. Creatinine Clearance 56 mL/min (70-130); Calcium 8.9 mg/dL (7.8-10.44); Carbon Dioxide 24 mmol/L (23-31); Chloride 96 mmol/L (98-107); Estimated GFR 38; Glucose 164 mg/dL (83-110); Potassium 4.8 mmol/L (3.5-5.1); Sodium 131 mmol/L (136-145)
[2022-07-30] MEDS ORDERED: Spironolactone 25 MG TAB PO SCH (09:00)
[2022-07-30] MEDS ORDERED: Loperamide HCl 2 MG CAP PO PRN (13:01)
[2022-07-30] MEDS ORDERED: Loperamide HCl 2 MG CAP PO SCH (13:30)
[2022-07-30] MEDS: Aspirin 81 mg Enteric Coated Tablet PO SCH (17:15)
[2022-07-30] MEDS: predniSONE 5 MG TAB PO SCH (17:15)
[2022-07-30] MEDS: Gabapentin 100 MG CAP PO SCH (17:15)
[2022-07-30] MEDS: Empagliflozin 25 MG TAB PO SCH (17:15)
[2022-07-30] MEDS: Nicotine 14 MG PATCH TD SCH (17:18)
[2022-07-30] MEDS: Polyethylene Glycol 3350 17 GM Packet PO SCH (17:18)
[2022-07-30] MEDS: Carvedilol 3.125 MG TAB PO SCH ×2 (17:18→18:02)
[2022-07-30] MEDS ORDERED: Lisinopril 10 MG TAB PO SCH (21:00)
[2022-07-30] MEDS: Atorvastatin Calcium 20 MG TAB PO SCH (21:42)
[2022-07-31 04:52] LABS: #Eosinphils 0.1 thou/uL (0.0-0.7); #Monocytes 0.6 thou/uL (0.11-0.59); %Eosinophils 1.7 % (0.0-10.0); %Lymphocytes 12.9 % (21.0-51.0); %Monocytes 8.1 % (0.0-10.0); %Neutrophils 77.3 % (42.0-75.0); Hemoglobin 13.5 g/dL (14.0-18.0); Mean Corpuscular HGB CONC 32.2 g/dL (32.0-36.0); Mean Corpuscular Hemoglobin 30.3 pg (27.0-31.0); Mean Corpuscular Volume 94.2 fl (78.0-98.0); Mean Platelet Volume 8.6 fL (7.4-10.4); Platelet Count 194 10x3/uL (130-400); RBC Distribution Width 13.2 % (11.5-14.5); Red Blood Cell (RBC) Count 4.46 mill/uL (4.70-6.10); White Blood Cell (WBC) Count 7.8 10x3/uL (4.8-10.8)
[2022-07-31 05:18] LABS: Anion Gap 14 mmol/L (10-20); BUN (Urea Nitrogen) 28 mg/dL (8.4-25.7); Calc. Creatinine Clearance 62 mL/min (70-130); Calcium 9.2 mg/dL (7.8-10.44); Carbon Dioxide 24 mmol/L (23-31); Chloride 99 mmol/L (98-107); Estimated GFR 42; Glucose 129 mg/dL (83-110); Potassium 4.4 mmol/L (3.5-5.1); Sodium 133 mmol/L (136-145)
[2022-07-31] MEDS: Gabapentin 100 MG CAP PO SCH (08:12)
[2022-07-31] MEDS: Empagliflozin 25 MG TAB PO SCH (08:12)
[2022-07-31] MEDS: Aspirin 81 mg Enteric Coated Tablet PO SCH (08:12)
[2022-07-31] MEDS: Nicotine 14 MG PATCH TD SCH (08:18)
[2022-07-31] MEDS: Polyethylene Glycol 3350 17 GM Packet PO SCH (08:18)
[2022-07-31] MEDS: predniSONE 5 MG TAB PO SCH (08:18)
[2022-07-31] MEDS: Carvedilol 3.125 MG TAB PO SCH (08:21)
[2022-07-31 08:50] VITALS: BP 103/66; TEMP 98.3
== END 2022-07-31 11:54 | disposition home or self-care (01) | DRG 312 ==
LOC: ERS 02:56 → 2SW 05:59 → ERHOLD 05:59 → 2SW 17:17 → OBSVTOIN 07-30 16:25
PROVIDERS: ADMIT Student in an Organized Health Care Education/Training Program; ATTEND Internal Medicine
DX: I95.2 Hypotension due to drugs (principal); I13.0 Hypertensive heart and chronic kidney disease with heart failure and stage 1 through stage 4 chronic kidney disease, or unspecified chronic kidney disease; I50.22 Chronic systolic (congestive) heart failure; N17.9 Acute kidney failure, unspecified; I42.0 Dilated cardiomyopathy; R07.89 Other chest pain; N18.30 Chronic kidney disease, stage 3 unspecified; K59.00 Constipation, unspecified; I25.10 Atherosclerotic heart disease of native coronary artery without angina pectoris; Z20.822 Contact with and (suspected) exposure to COVID-19; E80.6 Other disorders of bilirubin metabolism; E87.5 Hyperkalemia; E11.22 Type 2 diabetes mellitus with diabetic chronic kidney disease; F03.90 Unspecified dementia, unspecified severity, without behavioral disturbance, psychotic disturbance, mood disturbance, and anxiety; E78.5 Hyperlipidemia, unspecified; K21.9 Gastro-esophageal reflux disease without esophagitis; Z95.5 Presence of coronary angioplasty implant and graft; Z98.890 Other specified postprocedural states; Z95.810 Presence of automatic (implantable) cardiac defibrillator; Z79.899 Other long term (current) drug therapy; Z79.82 Long term (current) use of aspirin
CPT/HCPCS: 36415; 36416; 70450; 71045; 71275; 78452; 80048; 80053; 81003; 81015; 82550; 82553; 83605; 83690; 83735; 84484; 85025; 85379; 85610; 85730; 86850; 86900; 86901; 87040; 87086; 93005; 93017; 96372; A9500; G0378; J0153; J1650; J1815; Q9967

== ENCOUNTER 2022-08-12 11:47 | Emergency (ER) | payer MEDICARE, MEDICAID | END 2022-08-12 12:20 | disposition home or self-care (01) | LOC: ERS 11:47 | DX: E11.51 Type 2 diabetes mellitus with diabetic peripheral angiopathy without gangrene (principal); L03.115 Cellulitis of right lower limb; L03.116 Cellulitis of left lower limb; I10 Essential (primary) hypertension; F17.220 Nicotine dependence, chewing tobacco, uncomplicated; Z86.73 Personal history of transient ischemic attack (TIA), and cerebral infarction without residual deficits; Z79.899 Other long term (current) drug therapy; Z79.82 Long term (current) use of aspirin | CPT/HCPCS: 99283 ==

== ENCOUNTER 2022-10-06 12:11 | Emergency (ER) | payer MEDICARE, MEDICAID ==
[2022-10-06 15:23] LABS: #Eosinphils 0.1 thou/uL (0.0-0.7); #Monocytes 0.9 thou/uL (0.11-0.59); #Neutrophils 6.1 thou/uL (1.40-6.50); %Eosinophils 1.2 % (0.0-10.0); %Lymphocytes 12.7 % (21.0-51.0); %Monocytes 10.5 % (0.0-10.0); %Neutrophils 75.6 % (42.0-75.0); Hemoglobin 14.9 g/dL (14.0-18.0); Mean Corpuscular HGB CONC 32.5 g/dL (32.0-36.0); Mean Corpuscular Hemoglobin 28.8 pg (27.0-31.0); Mean Corpuscular Volume 88.6 fl (78.0-98.0); Mean Platelet Volume 7.6 fL (7.4-10.4); Platelet Count 252 10x3/uL (130-400); RBC Distribution Width 15.7 % (11.5-14.5); Red Blood Cell (RBC) Count 5.18 mill/uL (4.70-6.10); White Blood Cell (WBC) Count 8.1 10x3/uL (4.8-10.8)
[2022-10-06 15:37] LABS: ALT (SGPT) 21 U/L (8-55); AST (SGOT) 24 U/L (5-34); Albumin 3.8 g/dL (3.4-4.8); Alkaline Phosphatase 87 U/L (40-110); Anion Gap 16 mmol/L (10-20); BUN (Urea Nitrogen) 29 mg/dL (8.4-25.7); Bilirubin, Total 1.5 mg/dL (0.2-1.2); Calc. Creatinine Clearance 0 mL/min (70-130); Calcium 9.2 mg/dL (7.8-10.44); Carbon Dioxide 25 mmol/L (23-31); Chloride 92 mmol/L (98-107); Estimated GFR 44; Glucose 358 mg/dL (83-110); Potassium 4.3 mmol/L (3.5-5.1); Protein, Total 7.8 g/dL (5.8-8.1); Sodium 129 mmol/L (136-145)
[2022-10-06 16:54] LABS: Bilirubin Negative (Negative); Blood, Urine Negative (Negative); Clarity Clear (Clear); Glucose, Urine (Dipstick) Greater than 1000 mg/dL (Negative); Ketone, Urine Negative (Negative); Leukocyte Negative Leu/uL (Negative); Nitrite Negative (Negative); Protein, Urine (Dipstick) Negative (Neg-Trace); Specific Gravity, Urine 1.017 (1.002-1.036); Urobilinogen Normal mg/dL (Less than 2)
== END 2022-10-06 18:28 | disposition home or self-care (01) ==
LOC: ERS 12:11
DX: E86.0 Dehydration (principal); E11.22 Type 2 diabetes mellitus with diabetic chronic kidney disease; N18.9 Chronic kidney disease, unspecified; I12.9 Hypertensive chronic kidney disease with stage 1 through stage 4 chronic kidney disease, or unspecified chronic kidney disease; E11.51 Type 2 diabetes mellitus with diabetic peripheral angiopathy without gangrene; M31.4 Aortic arch syndrome [Takayasu]; K21.9 Gastro-esophageal reflux disease without esophagitis; F17.220 Nicotine dependence, chewing tobacco, uncomplicated; Z86.73 Personal history of transient ischemic attack (TIA), and cerebral infarction without residual deficits; Z79.899 Other long term (current) drug therapy; Z79.82 Long term (current) use of aspirin
CPT/HCPCS: 36415; 71045; 80053; 81003; 83605; 85025; 87040; 93005; 93923

== ENCOUNTER 2022-12-04 15:31 | Inpatient (IN) | payer MEDICARE, MEDICAID ==
[2022-12-04 16:32] LABS: #Eosinphils 0.1 thou/uL (0.0-0.7); #Lymphocytes 1.3 thou/uL (1.20-3.40); #Monocytes 0.5 thou/uL (0.11-0.59); #Neutrophils 4.7 thou/uL (1.40-6.50); %Basophils 0.5 % (0.0-1.0); %Eosinophils 1.4 % (0.0-10.0); %Lymphocytes 19.2 % (21.0-51.0); %Monocytes 8.2 % (0.0-10.0); %Neutrophils 70.7 % (42.0-75.0); Hemoglobin 16.3 g/dL (14.0-18.0); Mean Corpuscular HGB CONC 32.9 g/dL (32.0-36.0); Mean Corpuscular Hemoglobin 31.5 pg (27.0-31.0); Mean Corpuscular Volume 95.6 fl (78.0-98.0); Mean Platelet Volume 8.7 fL (7.4-10.4); Platelet Count 179 10x3/uL (130-400); RBC Distribution Width 16.2 % (11.5-14.5); Red Blood Cell (RBC) Count 5.16 mill/uL (4.70-6.10); White Blood Cell (WBC) Count 6.6 10x3/uL (4.8-10.8)
[2022-12-04 17:01] LABS: Bilirubin Negative (Negative); Blood, Urine Negative (Negative); Clarity Clear (Clear); Glucose, Urine (Dipstick) Greater than 1000 mg/dL (Negative); Ketone, Urine Negative (Negative); Leukocyte Negative Leu/uL (Negative); Nitrite Negative (Negative); Protein, Urine (Dipstick) Negative (Neg-Trace); Specific Gravity, Urine 1.004 (1.002-1.036); Urobilinogen Normal mg/dL (Less than 2); pH, Urine 5.5 (5.0-9.0)
[2022-12-04 17:02] LABS: ALT (SGPT) 26 U/L (8-55); AST (SGOT) 22 U/L (5-34); Albumin 4.1 g/dL (3.4-4.8); Alkaline Phosphatase 70 U/L (40-110); Anion Gap 17 mmol/L (10-20); BUN (Urea Nitrogen) 21 mg/dL (8.4-25.7); Bilirubin, Total 1.5 mg/dL (0.2-1.2); Calc. Creatinine Clearance 0 mL/min (70-130); Calcium 9.3 mg/dL (7.8-10.44); Carbon Dioxide 27 mmol/L (23-31); Chloride 97 mmol/L (98-107); Estimated GFR 41; Glucose 116 mg/dL (83-110); Potassium 4.5 mmol/L (3.5-5.1); Protein, Total 7.1 g/dL (5.8-8.1); Sodium 136 mmol/L (136-145)
[2022-12-04] MEDS ORDERED: Furosemide 40 MG/4 ML VIAL ONE (21:53)
[2022-12-04] MEDS ORDERED: Nitroglycerin 2% Ointment 1 INCH/1 GM Packet ONE (21:53)
[2022-12-04] MEDS ORDERED: Aspirin Chewable 81 MG TAB ONE (21:53)
[2022-12-04 22:10] LABS: Troponin I 0.025 ng/mL (< 0.028)
[2022-12-04 23:17] LABS: SARS-CoV-2 NAA Rapid Test Not Detected (NotDetected)
[2022-12-04] MEDS ORDERED: Acetaminophen 325 MG TAB PO PRN (23:32)
[2022-12-04] MEDS ORDERED: Ondansetron PF 4 MG/2 ML Vial IVP PRN (23:32)
[2022-12-05 00:37] VITALS: BMI 36.3
[2022-12-05 02:04] LABS: Troponin I 0.017 ng/mL (< 0.028)
[2022-12-05] MEDS ORDERED: Benzonatate 100 MG CAP PO PRN (03:22)
[2022-12-05] MEDS ORDERED: Albuterol 200 PUFF (6.7GM INHALER) INH PRN (03:47)
[2022-12-05] MEDS: Furosemide 40 MG/4 ML VIAL SLOW IVP SCH ×2 (05:53→14:54)
[2022-12-05] MEDS ORDERED: Furosemide 20 MG/2 ML VIAL SLOW IVP SCH ×2 (06:00)
[2022-12-05 06:31] LABS: #Eosinphils 0.1 thou/uL (0.0-0.7); #Monocytes 0.4 thou/uL (0.11-0.59); %Basophils 0.7 % (0.0-1.0); %Eosinophils 2.4 % (0.0-10.0); %Lymphocytes 21.7 % (21.0-51.0); %Monocytes 9.2 % (0.0-10.0); Hemoglobin 14.1 g/dL (14.0-18.0); Mean Corpuscular HGB CONC 33.7 g/dL (32.0-36.0); Mean Corpuscular Hemoglobin 31.9 pg (27.0-31.0); Mean Corpuscular Volume 94.7 fl (78.0-98.0); Mean Platelet Volume 8.9 fL (7.4-10.4); Platelet Count 152 10x3/uL (130-400); RBC Distribution Width 15.9 % (11.5-14.5); Red Blood Cell (RBC) Count 4.42 mill/uL (4.70-6.10); White Blood Cell (WBC) Count 4.5 10x3/uL (4.8-10.8)
[2022-12-05 06:43] LABS: Anion Gap 13 mmol/L (10-20); BUN (Urea Nitrogen) 24 mg/dL (8.4-25.7); Calc. Creatinine Clearance 65 mL/min (70-130); Calcium 8.9 mg/dL (7.8-10.44); Carbon Dioxide 28 mmol/L (23-31); Chloride 100 mmol/L (98-107); Estimated GFR 44; Glucose 132 mg/dL (83-110); Potassium 3.7 mmol/L (3.5-5.1); Sodium 137 mmol/L (136-145)
[2022-12-05] MEDS: Heparin 5,000 UNITS/ML VIAL SC SCH ×2 (08:42→20:02)
[2022-12-05] MEDS: guaiFENesin/DM ER PO SCH ×2 (08:43→20:02)
[2022-12-06] MEDS: Furosemide 40 MG/4 ML VIAL SLOW IVP SCH ×2 (05:24→15:18)
[2022-12-06 06:01] LABS: #Eosinphils 0.1 thou/uL (0.0-0.7); #Monocytes 0.4 thou/uL (0.11-0.59); #Neutrophils 3.1 thou/uL (1.40-6.50); %Basophils 0.1 % (0.0-1.0); %Eosinophils 2.8 % (0.0-10.0); %Lymphocytes 22.1 % (21.0-51.0); %Monocytes 9.1 % (0.0-10.0); %Neutrophils 65.9 % (42.0-75.0); Hemoglobin 13.8 g/dL (14.0-18.0); Mean Corpuscular HGB CONC 33.4 g/dL (32.0-36.0); Mean Corpuscular Hemoglobin 31.8 pg (27.0-31.0); Mean Corpuscular Volume 95.1 fl (78.0-98.0); Mean Platelet Volume 8.5 fL (7.4-10.4); Platelet Count 160 10x3/uL (130-400); RBC Distribution Width 15.7 % (11.5-14.5); Red Blood Cell (RBC) Count 4.33 mill/uL (4.70-6.10); White Blood Cell (WBC) Count 4.7 10x3/uL (4.8-10.8)
[2022-12-06 06:38] LABS: Anion Gap 15 mmol/L (10-20); BUN (Urea Nitrogen) 23 mg/dL (8.4-25.7); Calc. Creatinine Clearance 65 mL/min (70-130); Calcium 9.1 mg/dL (7.8-10.44); Carbon Dioxide 30 mmol/L (23-31); Chloride 98 mmol/L (98-107); Cholesterol 99 mg/dl (< 200 Desired); Estimated GFR 45; Glucose 104 mg/dL (83-110); HDL Cholesterol 25 mg/dL (>60 Neg Risk); LDL Cholesterol, Calculated 54 mg/dL; Potassium 3.4 mmol/L (3.5-5.1); Sodium 140 mmol/L (136-145); Triglycerides 101 mg/dL (Less than 150)
[2022-12-06] MEDS: guaiFENesin/DM ER PO SCH ×2 (08:50→20:17)
[2022-12-06] MEDS: Heparin 5,000 UNITS/ML VIAL SC SCH ×2 (08:51→20:17)
[2022-12-06] MEDS: Potassium Chloride 20 MEQ TAB PO SCH (16:27)
[2022-12-06] MEDS: Carvedilol 6.25 MG TAB PO SCH (16:28)
[2022-12-06] MEDS ORDERED: Atorvastatin Calcium 20 MG TAB PO SCH (21:00)
[2022-12-06] MEDS ORDERED: Non-Formulary Item 1 EACH (Insulin Aspart Prot/Insuln Asp [Novolog Mix 70-30 Flexpen] 100 SC SCH (21:00)
[2022-12-07 05:51] LABS: #Eosinphils 0.1 thou/uL (0.0-0.7); #Monocytes 0.4 thou/uL (0.11-0.59); #Neutrophils 2.8 thou/uL (1.40-6.50); %Basophils 0.3 % (0.0-1.0); %Lymphocytes 23.7 % (21.0-51.0); %Monocytes 8.9 % (0.0-10.0); %Neutrophils 65.2 % (42.0-75.0); Hemoglobin 14.6 g/dL (14.0-18.0); Mean Corpuscular Hemoglobin 32.4 pg (27.0-31.0); Mean Corpuscular Volume 95.3 fl (78.0-98.0); Platelet Count 176 10x3/uL (130-400); RBC Distribution Width 15.7 % (11.5-14.5); White Blood Cell (WBC) Count 4.4 10x3/uL (4.8-10.8)
[2022-12-07] MEDS: Furosemide 40 MG/4 ML VIAL SLOW IVP SCH ×2 (05:58→14:12)
[2022-12-07 06:01] LABS: BUN (Urea Nitrogen) 21 mg/dL (8.4-25.7); Calc. Creatinine Clearance 67 mL/min (70-130); Carbon Dioxide 20 mmol/L (23-31); Chloride 102 mmol/L (98-107); Estimated GFR 48; Glucose 108 mg/dL (83-110); Potassium 3.9 mmol/L (3.5-5.1); Sodium 138 mmol/L (136-145)
[2022-12-07 06:05] LABS: Anion Gap 20 mmol/L (10-20)
[2022-12-07] MEDS ORDERED: Empagliflozin 25 MG TAB PO SCH (09:00)
[2022-12-07] MEDS: Potassium Chloride 20 MEQ TAB PO SCH (09:01)
[2022-12-07] MEDS: Carvedilol 6.25 MG TAB PO SCH (09:02)
[2022-12-07] MEDS: Heparin 5,000 UNITS/ML VIAL SC SCH (09:02)
[2022-12-07] MEDS: guaiFENesin/DM ER PO SCH (09:02)
[2022-12-07 12:33] VITALS: TEMP 97.6
[2022-12-07 13:40] VITALS: BP 108/67
== END 2022-12-07 16:43 | disposition home or self-care (01) | DRG 291 ==
LOC: ERS 15:31 → NEURO 20:58 → OBSVTOIN 12-07 08:14
PROVIDERS: ADMIT Internal Medicine; ATTEND Internal Medicine
DX: I13.0 Hypertensive heart and chronic kidney disease with heart failure and stage 1 through stage 4 chronic kidney disease, or unspecified chronic kidney disease (principal); I50.23 Acute on chronic systolic (congestive) heart failure; N17.9 Acute kidney failure, unspecified; N18.4 Chronic kidney disease, stage 4 (severe); E11.22 Type 2 diabetes mellitus with diabetic chronic kidney disease; Z20.822 Contact with and (suspected) exposure to COVID-19; I25.10 Atherosclerotic heart disease of native coronary artery without angina pectoris; K21.9 Gastro-esophageal reflux disease without esophagitis; F03.A0 Unspecified dementia, mild, without behavioral disturbance, psychotic disturbance, mood disturbance, and anxiety; E87.6 Hypokalemia; D63.1 Anemia in chronic kidney disease; Z95.810 Presence of automatic (implantable) cardiac defibrillator; Z87.891 Personal history of nicotine dependence; Z79.899 Other long term (current) drug therapy
CPT/HCPCS: 36415; 36416; 71045; 74176; 80048; 80053; 80061; 81003; 83880; 84484; 85025; 93005; 93306; 93798; 96374; 96375; 96376; G0378; J1644; J1940; J2405

== ENCOUNTER 2022-12-21 13:46 | Inpatient (IN) | payer MEDICARE, MEDICAID ==
[2022-12-21 14:20] LABS: #Eosinphils 0.2 thou/uL (0.0-0.7); #Monocytes 0.5 thou/uL (0.11-0.59); #Neutrophils 5.2 thou/uL (1.40-6.50); %Basophils 0.6 % (0.0-1.0); %Eosinophils 3.1 % (0.0-10.0); %Lymphocytes 10.7 % (21.0-51.0); %Monocytes 7.8 % (0.0-10.0); %Neutrophils 77.5 % (42.0-75.0); Hemoglobin 15.4 g/dL (14.0-18.0); Mean Corpuscular HGB CONC 32.3 g/dL (32.0-36.0); Mean Corpuscular Hemoglobin 29.3 pg (27.0-31.0); Mean Corpuscular Volume 90.7 fl (78.0-98.0); Mean Platelet Volume 11.1 fL (7.4-10.4); Platelet Count 206 10x3/uL (130-400); RBC Distribution Width 15.5 % (11.5-14.5); Red Blood Cell (RBC) Count 5.26 mill/uL (4.70-6.10); White Blood Cell (WBC) Count 6.8 10x3/uL (4.8-10.8)
[2022-12-21 14:50] LABS: ALT (SGPT) 24 U/L (8-55); AST (SGOT) 23 U/L (5-34); Albumin 3.8 g/dL (3.4-4.8); Alkaline Phosphatase 74 U/L (40-110); Anion Gap 15 mmol/L (10-20); BUN (Urea Nitrogen) 38 mg/dL (8.4-25.7); Bilirubin, Total 1.8 mg/dL (0.2-1.2); Calc. Creatinine Clearance 0 mL/min (70-130); Calcium 9.3 mg/dL (7.8-10.44); Carbon Dioxide 26 mmol/L (23-31); Chloride 95 mmol/L (98-107); Estimated GFR 34; Globulin 3.1 g/dL (2.4-3.5); Glucose 217 mg/dL (83-110); Potassium 3.9 mmol/L (3.5-5.1); Protein, Total 6.9 g/dL (5.8-8.1); Sodium 132 mmol/L (136-145)
[2022-12-21] MEDS ORDERED: Furosemide 40 MG/4 ML VIAL ONE (15:49)
[2022-12-21] MEDS ORDERED: Aspirin Chewable 81 MG TAB ONE (15:49)
[2022-12-21 17:32] LABS: Troponin I 0.029 ng/mL (< 0.028)
[2022-12-21 18:15] VITALS: BMI 34.7
[2022-12-21 19:00] LABS: Bacteria/HPF None Seen HPF (None Seen); Bilirubin Negative (Negative); Blood, Urine Negative (Negative); Clarity Clear (Clear); Glucose, Urine (Dipstick) Greater than 1000 mg/dL (Negative); Ketone, Urine Negative (Negative); Leukocyte Negative Leu/uL (Negative); Nitrite Negative (Negative); Protein, Urine (Dipstick) Negative (Neg-Trace); RBC/HPF 0-3 HPF (0-3); Specific Gravity, Urine 1.009 (1.002-1.036); Squamous Epithelial 0-3 HPF (0-3); Urobilinogen Normal mg/dL (Less than 2); WBC/HPF None Seen HPF (0-3); pH, Urine 5.5 (5.0-9.0)
[2022-12-21 19:16] LABS: Sodium, Urine 27 mmol/L (Not Available); Urea Nitrogen, Random Urine 269 mg/dl
[2022-12-21] MEDS: Atorvastatin Calcium 20 MG TAB PO SCH (20:29)
[2022-12-21] MEDS: Heparin 5,000 UNITS/ML VIAL SC SCH (20:29)
[2022-12-21 22:09] LABS: Troponin I 0.023 ng/mL (< 0.028)
[2022-12-22 00:06] LABS: Troponin I 0.025 ng/mL (< 0.028)
[2022-12-22 04:56] LABS: #Eosinphils 0.3 thou/uL (0.0-0.7); #Monocytes 0.6 thou/uL (0.11-0.59); #Neutrophils 4.4 thou/uL (1.40-6.50); %Basophils 0.7 % (0.0-1.0); %Eosinophils 5.1 % (0.0-10.0); %Lymphocytes 12.5 % (21.0-51.0); %Monocytes 9.4 % (0.0-10.0); %Neutrophils 72.1 % (42.0-75.0); Hemoglobin 14.4 g/dL (14.0-18.0); Mean Corpuscular HGB CONC 30.2 g/dL (32.0-36.0); Mean Corpuscular Hemoglobin 28.2 pg (27.0-31.0); Mean Corpuscular Volume 93.3 fl (78.0-98.0); Mean Platelet Volume 11.4 fL (7.4-10.4); Platelet Count 192 10x3/uL (130-400); RBC Distribution Width 15.2 % (11.5-14.5); Red Blood Cell (RBC) Count 5.11 mill/uL (4.70-6.10); White Blood Cell (WBC) Count 6.1 10x3/uL (4.8-10.8)
[2022-12-22 05:14] LABS: ALT (SGPT) 22 U/L (8-55); AST (SGOT) 18 U/L (5-34); Albumin 3.5 g/dL (3.4-4.8); Alkaline Phosphatase 67 U/L (40-110); Anion Gap 14 mmol/L (10-20); BUN (Urea Nitrogen) 36 mg/dL (8.4-25.7); Bilirubin, Total 1.2 mg/dL (0.2-1.2); Calc. Creatinine Clearance 54 mL/min (70-130); Calcium 8.9 mg/dL (7.8-10.44); Carbon Dioxide 25 mmol/L (23-31); Chloride 99 mmol/L (98-107); Estimated GFR 37; Globulin 2.7 g/dL (2.4-3.5); Glucose 165 mg/dL (83-110); Potassium 3.4 mmol/L (3.5-5.1); Protein, Total 6.2 g/dL (5.8-8.1); Sodium 135 mmol/L (136-145)
[2022-12-22 05:18] LABS: Troponin I 0.018 ng/mL (< 0.028)
[2022-12-22] MEDS: Empagliflozin 25 MG TAB PO SCH (08:14)
[2022-12-22] MEDS: Famotidine 20 MG TAB PO SCH (08:14)
[2022-12-22] MEDS: Heparin 5,000 UNITS/ML VIAL SC SCH ×3 (08:15→20:04)
[2022-12-22] MEDS ORDERED: HumuLIN 70/30 (300 UNITS/3 ML VIAL) SC SCH (09:00)
[2022-12-22] MEDS ORDERED: Iopamidol 370 76% 100 ML VIAL ONE (09:57)
[2022-12-22 10:28] LABS: Troponin I 0.032 ng/mL (< 0.028)
[2022-12-22] MEDS: HumuLIN 70/30 100 Unit/ ml Vial SC SCH ×2 (10:51→23:04)
[2022-12-22] MEDS: Sodium Chloride 0.9% 1,000 ML IV SCH (16:09)
[2022-12-22] MEDS: Carvedilol 6.25 MG TAB PO SCH (17:30)
[2022-12-22] MEDS: Atorvastatin Calcium 20 MG TAB PO SCH (20:04)
[2022-12-23 05:18] LABS: #Eosinphils 0.3 thou/uL (0.0-0.7); #Monocytes 0.6 thou/uL (0.11-0.59); #Neutrophils 3.9 thou/uL (1.40-6.50); %Basophils 0.7 % (0.0-1.0); %Eosinophils 5.1 % (0.0-10.0); %Lymphocytes 14.7 % (21.0-51.0); %Monocytes 9.7 % (0.0-10.0); %Neutrophils 69.6 % (42.0-75.0); Hemoglobin 14.3 g/dL (14.0-18.0); Mean Corpuscular HGB CONC 30.9 g/dL (32.0-36.0); Mean Corpuscular Hemoglobin 28.6 pg (27.0-31.0); Mean Corpuscular Volume 92.6 fl (78.0-98.0); Platelet Count 194 10x3/uL (130-400); RBC Distribution Width 15.5 % (11.5-14.5); White Blood Cell (WBC) Count 5.7 10x3/uL (4.8-10.8)
[2022-12-23 05:54] LABS: ALT (SGPT) 22 U/L (8-55); AST (SGOT) 26 U/L (5-34); Albumin 3.4 g/dL (3.4-4.8); Alkaline Phosphatase 69 U/L (40-110); Anion Gap 16 mmol/L (10-20); BUN (Urea Nitrogen) 32 mg/dL (8.4-25.7); Bilirubin, Total 1.4 mg/dL (0.2-1.2); Calc. Creatinine Clearance 64 mL/min (70-130); Carbon Dioxide 23 mmol/L (23-31); Chloride 101 mmol/L (98-107); Estimated GFR 46; Globulin 2.9 g/dL (2.4-3.5); Glucose 91 mg/dL (83-110); Potassium 3.8 mmol/L (3.5-5.1); Protein, Total 6.3 g/dL (5.8-8.1); Sodium 136 mmol/L (136-145)
[2022-12-23] MEDS ORDERED: Furosemide 40 MG/4 ML VIAL SLOW IVP SCH (08:15)
[2022-12-23] MEDS: Famotidine 20 MG TAB PO SCH (09:57)
[2022-12-23] MEDS: Carvedilol 6.25 MG TAB PO SCH ×2 (09:57→16:51)
[2022-12-23] MEDS: Empagliflozin 25 MG TAB PO SCH (09:58)
[2022-12-23] MEDS: Heparin 5,000 UNITS/ML VIAL SC SCH ×3 (10:28→20:23)
[2022-12-23] MEDS: HumuLIN 70/30 100 Unit/ ml Vial SC SCH ×2 (10:29→20:22)
[2022-12-23] MEDS: Sodium Chloride 0.9% 1,000 ML IV SCH (10:29)
[2022-12-23] MEDS: Atorvastatin Calcium 20 MG TAB PO SCH (20:23)
[2022-12-23] MEDS ORDERED: Acetaminophen 325 MG TAB PO PRN (20:31)
[2022-12-23] MEDS ORDERED: Acetaminophen 500 MG TAB PO SCH (20:45)
[2022-12-24] MEDS: Empagliflozin 25 MG TAB PO SCH (09:02)
[2022-12-24] MEDS: Famotidine 20 MG TAB PO SCH (09:02)
[2022-12-24] MEDS: Heparin 5,000 UNITS/ML VIAL SC SCH (09:03)
[2022-12-24] MEDS: HumuLIN 70/30 100 Unit/ ml Vial SC SCH (09:03)
[2022-12-24] MEDS: Carvedilol 6.25 MG TAB PO SCH (09:15)
[2022-12-24 09:16] VITALS: BP 103/73; TEMP 97.2
[2022-12-24] MEDS: Sodium Chloride 0.9% 1,000 ML IV SCH (09:52)
== END 2022-12-24 10:54 | disposition home or self-care (01) | DRG 291 ==
LOC: ERS 13:46 → 2SW 16:53 → OBSVTOIN 12-22 13:54
PROVIDERS: ADMIT Hospitalist; ATTEND Hospitalist
DX: I13.0 Hypertensive heart and chronic kidney disease with heart failure and stage 1 through stage 4 chronic kidney disease, or unspecified chronic kidney disease (principal); I50.23 Acute on chronic systolic (congestive) heart failure; J96.01 Acute respiratory failure with hypoxia; N18.4 Chronic kidney disease, stage 4 (severe); E66.9 Obesity, unspecified; E11.22 Type 2 diabetes mellitus with diabetic chronic kidney disease; K21.9 Gastro-esophageal reflux disease without esophagitis; D63.1 Anemia in chronic kidney disease; E87.6 Hypokalemia; I25.5 Ischemic cardiomyopathy; F03.90 Unspecified dementia, unspecified severity, without behavioral disturbance, psychotic disturbance, mood disturbance, and anxiety; Z79.899 Other long term (current) drug therapy; Z79.4 Long term (current) use of insulin; Z95.810 Presence of automatic (implantable) cardiac defibrillator; Z87.891 Personal history of nicotine dependence; Z68.34 Body mass index [BMI] 34.0-34.9, adult; Z86.73 Personal history of transient ischemic attack (TIA), and cerebral infarction without residual deficits
CPT/HCPCS: 36415; 36416; 71045; 71275; 74176; 76705; 78451; 80053; 81001; 83880; 84145; 84300; 84484; 84540; 85025; 93005; 96372; 96374; A9540; G0378; J1644; J1815; J1940; J7050; Q9967

== ENCOUNTER 2023-02-05 18:15 | Inpatient (IN) | payer MEDICARE ==
[2023-02-05 18:44] LABS: #Monocytes 0.5 thou/uL (0.11-0.59); #Neutrophils 2.9 thou/uL (1.40-6.50); %Basophils 0.2 % (0.0-1.0); %Eosinophils 0.2 % (0.0-10.0); %Lymphocytes 13.4 % (21.0-51.0); %Monocytes 12.7 % (0.0-10.0); %Neutrophils 73.3 % (42.0-75.0); Hemoglobin 15.7 g/dL (14.0-18.0); Mean Corpuscular HGB CONC 33.1 g/dL (32.0-36.0); Mean Corpuscular Volume 87.6 fl (78.0-98.0); Mean Platelet Volume 12.5 fL (7.4-10.4); Platelet Count 69 10x3/uL (130-400); RBC Distribution Width 17.7 % (11.5-14.5); Red Blood Cell (RBC) Count 5.42 mill/uL (4.70-6.10)
[2023-02-05] MEDS ORDERED: NOREPINEPHRINE 8 MG/250 ML-D5W 250 ML ONE (19:03)
[2023-02-05 19:25] LABS: INR-International Normal Ratio 1.6; PTT 34.5 sec (22.9-36.1); Prothrombin Time 19.8 sec (12.0-14.7)
[2023-02-05 19:30] LABS: CKMB 2.8 ng/mL (0-6.6)
[2023-02-05 19:42] LABS: ALT (SGPT) 1037 U/L (8-55); AST (SGOT) 649 U/L (5-34); Albumin 3.6 g/dL (3.4-4.8); Alkaline Phosphatase 95 U/L (40-110); Anion Gap 21 mmol/L (10-20); BUN (Urea Nitrogen) 67 mg/dL (8.4-25.7); Bilirubin, Total 3.7 mg/dL (0.2-1.2); Calc. Creatinine Clearance 0 mL/min (70-130); Calcium 9.4 mg/dL (7.8-10.44); Carbon Dioxide 24 mmol/L (23-31); Chloride 84 mmol/L (98-107); Estimated GFR 23; Globulin 4.1 g/dL (2.4-3.5); Glucose 158 mg/dL (83-110); Potassium 5.3 mmol/L (3.5-5.1); Protein, Total 7.7 g/dL (5.8-8.1); Sodium 124 mmol/L (136-145)
[2023-02-05] MEDS ORDERED: Tamsulosin HCl 0.4 MG CAP PO SCH ×2 (21:00→23:00)
[2023-02-05] MEDS ORDERED: Atorvastatin Calcium 20 MG TAB PO SCH ×2 (21:00→23:00)
[2023-02-05] MEDS ORDERED: Acetaminophen 325 MG TAB PO PRN ×2 (21:01→22:54)
[2023-02-05] MEDS ORDERED: Vancomycin 1 GM/200 ML (FROZEN) BAG ONE (21:03)
[2023-02-05] MEDS ORDERED: Cefepime 2 GM VIAL ONE (21:03)
[2023-02-05] MEDS ORDERED: Lidocaine 1% w/Epinephrine 1:100K 20 ML VIAL ONE (21:09)
[2023-02-05] MEDS ORDERED: Morphine 4 MG/ML VIAL SLOW IVP PRN ×2 (21:11→22:55)
[2023-02-05] MEDS ORDERED: Glucagon 1 MG/ML KIT IM PRN ×2 (21:11→22:55)
[2023-02-05] MEDS ORDERED: Metoclopramide HCl 10 MG/2 ML VIAL IVP PRN ×2 (21:11→22:55)
[2023-02-05] MEDS ORDERED: Dextrose 5% in Water 1,000 ML IV PRN (21:11)
[2023-02-05] MEDS ORDERED: Dextrose 50% Abboject 50 ML SYRINGE SLOW IVP PRN ×2 (21:11→22:55)
[2023-02-05] MEDS ORDERED: NOREPINEPHRINE 8 MG/250 ML-D5W 250 ML IVPB SCH ×2 (21:15→23:00)
[2023-02-05 21:40] LABS: Bacteria/HPF None Seen HPF (None Seen); Bilirubin Negative (Negative); Blood, Urine Negative (Negative); CAUTI Indications for Culture Alt mental st,lethar; Clarity Turbid (Clear); Glucose, Urine (Dipstick) Greater than 1000 mg/dL (Negative); Ketone, Urine Negative (Negative); Leukocyte Negative Leu/uL (Negative); Nitrite Negative (Negative); Protein, Urine (Dipstick) 70 mg/dL (Neg-Trace); RBC/HPF 0-3 HPF (0-3); Specific Gravity, Urine 1.014 (1.002-1.036); Squamous Epithelial 0-3 HPF (0-3); WBC/HPF 0-3 HPF (0-3); pH, Urine 5.5 (5.0-9.0)
[2023-02-05 21:42] LABS: Urine Culture Reflex No No
[2023-02-05 21:59] LABS: Lactic Acid 1.8 mmol/L (0.5-2.2)
[2023-02-05 22:01] LABS: Troponin I 0.024 ng/mL (< 0.028)
[2023-02-05] MEDS ORDERED: Vancomycin 1 GM in Premix Bag 1 BAG IVPB SCH (22:30)
[2023-02-05 22:45] VITALS: BMI 32.1
[2023-02-05] MEDS: Sodium Chloride 0.9% 1,000 ML IV SCH (22:52)
[2023-02-05] MEDS: Divalproex Sodium 250 MG (DR) TAB PO SCH (23:28)
[2023-02-06 05:15] LABS: #Monocytes 0.6 thou/uL (0.11-0.59); #Neutrophils 2.6 thou/uL (1.40-6.50); %Basophils 0.3 % (0.0-1.0); %Eosinophils 0.3 % (0.0-10.0); %Lymphocytes 16.8 % (21.0-51.0); %Monocytes 15.5 % (0.0-10.0); %Neutrophils 66.8 % (42.0-75.0); Hemoglobin 14.9 g/dL (14.0-18.0); Mean Corpuscular HGB CONC 33.3 g/dL (32.0-36.0); Mean Corpuscular Volume 87.1 fl (78.0-98.0); Mean Platelet Volume 12.7 fL (7.4-10.4); RBC Distribution Width 17.7 % (11.5-14.5); Red Blood Cell (RBC) Count 5.13 mill/uL (4.70-6.10); White Blood Cell (WBC) Count 3.8 10x3/uL (4.8-10.8)
[2023-02-06 05:19] LABS: Platelet Count 61 10x3/uL (130-400)
[2023-02-06 05:33] LABS: Anion Gap 17 mmol/L (10-20); BUN (Urea Nitrogen) 64 mg/dL (8.4-25.7); Calc. Creatinine Clearance 40 mL/min (70-130); Calcium 8.5 mg/dL (7.8-10.44); Carbon Dioxide 21 mmol/L (23-31); Chloride 87 mmol/L (98-107); Estimated GFR 28; Glucose 140 mg/dL (83-110); Potassium 4.7 mmol/L (3.5-5.1); Sodium 120 mmol/L (136-145)
[2023-02-06] MEDS: Cefepime 1 GM in Sodium Chloride 0.9% 100 ML IVPB SCH ×2 (08:59→20:37)
[2023-02-06] MEDS ORDERED: Cefepime 2 GM in Sodium Chloride 0.9% 100 ML IVPB SCH (09:00)
[2023-02-06] MEDS ORDERED: Vancomycin 1 GM in Premix Bag 1 BAG IVPB SCH ×2 (09:00→22:00)
[2023-02-06] MEDS ORDERED: Heparin 5,000 UNITS/ML VIAL SC SCH ×3 (09:00)
[2023-02-06] MEDS ORDERED: Aspirin Chewable 81 MG TAB PO SCH (09:00)
[2023-02-06] MEDS: Gabapentin 100 MG CAP PO SCH (09:00)
[2023-02-06] MEDS: Aspirin Chewable 81 MG TAB PO SCH (09:00)
[2023-02-06] MEDS ORDERED: Gabapentin 100 MG CAP PO SCH (09:00)
[2023-02-06] MEDS: Divalproex Sodium 250 MG (DR) TAB PO SCH ×2 (09:11→20:36)
[2023-02-06] MEDS ORDERED: Albumin 25% 25 GM/100 ML BOT IVPB SCH (10:15)
[2023-02-06] MEDS: Sodium Chloride 0.9% 1,000 ML IV SCH ×2 (10:29→23:45)
[2023-02-06] MEDS: Tamsulosin HCl 0.4 MG CAP PO SCH (20:37)
[2023-02-06] MEDS: Atorvastatin Calcium 20 MG TAB PO SCH (20:37)
[2023-02-06] MEDS: Heparin 5,000 UNITS/ML VIAL SC SCH (20:37)
[2023-02-07 05:58] LABS: #Monocytes 0.5 thou/uL (0.11-0.59); #Neutrophils 2.6 thou/uL (1.40-6.50); %Basophils 0.3 % (0.0-1.0); %Eosinophils 0.5 % (0.0-10.0); %Lymphocytes 15.5 % (21.0-51.0); %Monocytes 13.1 % (0.0-10.0); %Neutrophils 70.3 % (42.0-75.0); Hemoglobin 14.2 g/dL (14.0-18.0); Mean Corpuscular HGB CONC 32.5 g/dL (32.0-36.0); Mean Corpuscular Hemoglobin 28.4 pg (27.0-31.0); Mean Corpuscular Volume 87.4 fl (78.0-98.0); Mean Platelet Volume 12.6 fL (7.4-10.4); RBC Distribution Width 17.9 % (11.5-14.5); White Blood Cell (WBC) Count 3.7 10x3/uL (4.8-10.8)
[2023-02-07 06:14] LABS: Platelet Count 48 10x3/uL (130-400)
[2023-02-07 06:48] LABS: Anion Gap 16 mmol/L (10-20); BUN (Urea Nitrogen) 70 mg/dL (8.4-25.7); Calc. Creatinine Clearance 35 mL/min (70-130); Calcium 8.3 mg/dL (7.8-10.44); Carbon Dioxide 22 mmol/L (23-31); Chloride 88 mmol/L (98-107); Estimated GFR 23; Glucose 129 mg/dL (83-110); Potassium 4.9 mmol/L (3.5-5.1); Sodium 121 mmol/L (136-145)
[2023-02-07] MEDS: Aspirin Chewable 81 MG TAB PO SCH (08:17)
[2023-02-07] MEDS: Gabapentin 100 MG CAP PO SCH (08:17)
[2023-02-07] MEDS: Cefepime 1 GM in Sodium Chloride 0.9% 100 ML IVPB SCH ×2 (08:17→20:12)
[2023-02-07] MEDS: Heparin 5,000 UNITS/ML VIAL SC SCH ×2 (08:18→20:13)
[2023-02-07] MEDS: Divalproex Sodium 250 MG (DR) TAB PO SCH ×2 (08:18→20:14)
[2023-02-07] MEDS ORDERED: Sodium Chloride 0.45% 1,000 ML IV SCH (10:30)
[2023-02-07] MEDS: Sodium Chloride 0.9% 1,000 ML IV SCH ×2 (11:14→20:12)
[2023-02-07] MEDS: Insulin Regular 300 UNITS/3 ML VIAL SC PRN ×3 (12:01→20:34)
[2023-02-07] MEDS ORDERED: DOPamine 400 MG/D5W 250 ML 250 ML IVPB SCH (12:45)
[2023-02-07] MEDS ORDERED: DOBUTamine 500 mg/250 ml 250 ML IVPB SCH (12:45)
[2023-02-07] MEDS ORDERED: DOBUTamine 500 mg/250 ml 500 MG in Premix Bag 1 BAG IVPB SCH (13:15)
[2023-02-07] MEDS: Atorvastatin Calcium 20 MG TAB PO SCH (20:11)
[2023-02-07] MEDS: Tamsulosin HCl 0.4 MG CAP PO SCH (20:11)
[2023-02-08 07:33] LABS: #Monocytes 0.5 thou/uL (0.11-0.59); #Neutrophils 2.8 thou/uL (1.40-6.50); %Eosinophils 0.8 % (0.0-10.0); %Lymphocytes 11.1 % (21.0-51.0); %Neutrophils 74.8 % (42.0-75.0); Hemoglobin 14.7 g/dL (14.0-18.0); Mean Corpuscular HGB CONC 33.1 g/dL (32.0-36.0); Mean Corpuscular Hemoglobin 28.9 pg (27.0-31.0); Mean Corpuscular Volume 87.4 fl (78.0-98.0); RBC Distribution Width 18.2 % (11.5-14.5); Red Blood Cell (RBC) Count 5.08 mill/uL (4.70-6.10); White Blood Cell (WBC) Count 3.7 10x3/uL (4.8-10.8)
[2023-02-08 07:39] LABS: Delete Auto Diff?? NO; Platelet Count 48 10x3/uL (130-400)
[2023-02-08] MEDS: Gabapentin 100 MG CAP PO SCH (08:14)
[2023-02-08] MEDS: Aspirin Chewable 81 MG TAB PO SCH (08:14)
[2023-02-08] MEDS: Cefepime 1 GM in Sodium Chloride 0.9% 100 ML IVPB SCH ×2 (08:14→20:20)
[2023-02-08] MEDS: Divalproex Sodium 250 MG (DR) TAB PO SCH ×2 (08:15→20:22)
[2023-02-08] MEDS: Heparin 5,000 UNITS/ML VIAL SC SCH ×2 (08:16→20:21)
[2023-02-08 08:24] LABS: ALT (SGPT) 394 U/L (8-55); AST (SGOT) 132 U/L (5-34); Albumin 2.8 g/dL (3.4-4.8); Alkaline Phosphatase 73 U/L (40-110); Anion Gap 20 mmol/L (10-20); BUN (Urea Nitrogen) 73 mg/dL (8.4-25.7); Bilirubin, Total 2.2 mg/dL (0.2-1.2); Calc. Creatinine Clearance 31 mL/min (70-130); Calcium 8.4 mg/dL (7.8-10.44); Carbon Dioxide 12 mmol/L (23-31); Chloride 90 mmol/L (98-107); Estimated GFR 19; Globulin 3.7 g/dL (2.4-3.5); Glucose 116 mg/dL (83-110); Potassium 5.8 mmol/L (3.5-5.1); Protein, Total 6.5 g/dL (5.8-8.1)
[2023-02-08] MEDS: DOBUTamine 500 mg/250 ml 250 ML IVPB SCH (08:27)
[2023-02-08 08:36] LABS: Sodium 116 mmol/L (136-145)
[2023-02-08] MEDS ORDERED: Sodium Chloride 3% 500 ML IVPB SCH (12:45)
[2023-02-08] MEDS ORDERED: Sodium Chloride 3% 250 ML IVPB SCH (12:45)
[2023-02-08 19:53] LABS: Potassium 5.1 mmol/L (3.5-5.1); Sodium 123 mmol/L (136-145)
[2023-02-08] MEDS: Tamsulosin HCl 0.4 MG CAP PO SCH (20:21)
[2023-02-08] MEDS: Atorvastatin Calcium 20 MG TAB PO SCH (20:21)
[2023-02-08 20:56] LABS: Sodium 123 mmol/L (136-145)
[2023-02-09] MEDS: Cefepime 1 GM in Sodium Chloride 0.9% 100 ML IVPB SCH ×2 (08:23→20:26)
[2023-02-09] MEDS: Heparin 5,000 UNITS/ML VIAL SC SCH ×2 (08:26→20:27)
[2023-02-09] MEDS: Gabapentin 100 MG CAP PO SCH (08:28)
[2023-02-09] MEDS: Divalproex Sodium 250 MG (DR) TAB PO SCH ×2 (08:30→20:26)
[2023-02-09] MEDS: Aspirin Chewable 81 MG TAB PO SCH (08:31)
[2023-02-09 10:35] LABS: Anion Gap 15 mmol/L (10-20); BUN (Urea Nitrogen) 71 mg/dL (8.4-25.7); Calc. Creatinine Clearance 34 mL/min (70-130); Calcium 8.4 mg/dL (7.8-10.44); Carbon Dioxide 23 mmol/L (23-31); Chloride 94 mmol/L (98-107); Estimated GFR 22; Glucose 71 mg/dL (83-110); Potassium 4.5 mmol/L (3.5-5.1); Sodium 127 mmol/L (136-145)
[2023-02-09] MEDS: DOBUTamine 500 mg/250 ml 250 ML IVPB SCH (15:28)
[2023-02-09] MEDS: Atorvastatin Calcium 20 MG TAB PO SCH (20:26)
[2023-02-09] MEDS: Tamsulosin HCl 0.4 MG CAP PO SCH (20:26)
[2023-02-10 05:54] LABS: Anion Gap 13 mmol/L (10-20); BUN (Urea Nitrogen) 63 mg/dL (8.4-25.7); Calc. Creatinine Clearance 40 mL/min (70-130); Calcium 8.6 mg/dL (7.8-10.44); Carbon Dioxide 23 mmol/L (23-31); Chloride 96 mmol/L (98-107); Estimated GFR 27; Glucose 94 mg/dL (83-110); Potassium 4.6 mmol/L (3.5-5.1); Sodium 127 mmol/L (136-145)
[2023-02-10 08:00] LABS: #Eosinphils 0.1 thou/uL (0.0-0.7); #Monocytes 0.5 thou/uL (0.11-0.59); #Neutrophils 2.3 thou/uL (1.40-6.50); %Eosinophils 3.3 % (0.0-10.0); %Lymphocytes 14.2 % (21.0-51.0); %Monocytes 13.6 % (0.0-10.0); %Neutrophils 68.9 % (42.0-75.0); Hemoglobin 14.6 g/dL (14.0-18.0); Mean Corpuscular Hemoglobin 29.4 pg (27.0-31.0); Mean Corpuscular Volume 89.3 fl (78.0-98.0); Mean Platelet Volume 12.1 fL (7.4-10.4); RBC Distribution Width 18.9 % (11.5-14.5); Red Blood Cell (RBC) Count 4.96 mill/uL (4.70-6.10); White Blood Cell (WBC) Count 3.3 10x3/uL (4.8-10.8)
[2023-02-10 08:03] LABS: Platelet Count 68 10x3/uL (130-400)
[2023-02-10] MEDS: Heparin 5,000 UNITS/ML VIAL SC SCH ×3 (08:10→21:23)
[2023-02-10] MEDS: Aspirin Chewable 81 MG TAB PO SCH (09:38)
[2023-02-10] MEDS: Gabapentin 100 MG CAP PO SCH (09:38)
[2023-02-10] MEDS: Cefepime 1 GM in Sodium Chloride 0.9% 100 ML IVPB SCH (09:39)
[2023-02-10] MEDS: Divalproex Sodium 250 MG (DR) TAB PO SCH ×3 (10:20→21:22)
[2023-02-10] MEDS ORDERED: Dextrose 5% in Water 1,000 ML IV PRN (21:05)
[2023-02-10] MEDS ORDERED: Glucagon 1 MG/ML KIT IM PRN (21:06)
[2023-02-10] MEDS ORDERED: Metoclopramide HCl 10 MG/2 ML VIAL IVP PRN (21:06)
[2023-02-10] MEDS ORDERED: Acetaminophen 325 MG TAB PO PRN (21:06)
[2023-02-10] MEDS ORDERED: Dextrose 50% Abboject 50 ML SYRINGE SLOW IVP PRN (21:06)
[2023-02-10] MEDS ORDERED: Insulin Regular 300 UNITS/3 ML VIAL SC PRN (21:07)
[2023-02-10] MEDS ORDERED: Morphine 4 MG/ML VIAL SLOW IVP PRN (21:07)
[2023-02-10] MEDS: Atorvastatin Calcium 20 MG TAB PO SCH ×2 (21:13→21:22)
[2023-02-10] MEDS: Tamsulosin HCl 0.4 MG CAP PO SCH ×2 (21:14→21:22)
[2023-02-10] MEDS ORDERED: DOBUTamine 500 mg/250 ml 250 ML IVPB SCH (21:15)
[2023-02-10] MEDS: DOBUTamine 500 mg/250 ml 250 ML IVPB SCH (21:15)
[2023-02-11] MEDS: Heparin 5,000 UNITS/ML VIAL SC SCH (07:28)
[2023-02-11] MEDS: Aspirin Chewable 81 MG TAB PO SCH (08:20)
[2023-02-11] MEDS: Divalproex Sodium 250 MG (DR) TAB PO SCH ×2 (08:20→20:46)
[2023-02-11] MEDS: Gabapentin 100 MG CAP PO SCH (08:20)
[2023-02-11] MEDS ORDERED: Cefepime 1 GM in Sodium Chloride 0.9% 100 ML IVPB SCH (09:00)
[2023-02-11] MEDS: Tamsulosin HCl 0.4 MG CAP PO SCH (20:46)
[2023-02-11] MEDS: Atorvastatin Calcium 20 MG TAB PO SCH (20:47)
[2023-02-12 04:46] LABS: #Eosinphils 0.2 thou/uL (0.0-0.7); #Monocytes 0.7 thou/uL (0.11-0.59); #Neutrophils 2.8 thou/uL (1.40-6.50); %Basophils 0.5 % (0.0-1.0); %Eosinophils 3.5 % (0.0-10.0); %Lymphocytes 14.4 % (21.0-51.0); %Monocytes 15.5 % (0.0-10.0); %Neutrophils 65.6 % (42.0-75.0); Hemoglobin 14.5 g/dL (14.0-18.0); Mean Corpuscular HGB CONC 32.4 g/dL (32.0-36.0); Mean Corpuscular Hemoglobin 29.1 pg (27.0-31.0); Mean Corpuscular Volume 89.6 fl (78.0-98.0); RBC Distribution Width 19.6 % (11.5-14.5); Red Blood Cell (RBC) Count 4.99 mill/uL (4.70-6.10); White Blood Cell (WBC) Count 4.3 10x3/uL (4.8-10.8)
[2023-02-12 04:50] LABS: Platelet Count 67 10x3/uL (130-400)
[2023-02-12 05:11] LABS: Anion Gap 12 mmol/L (10-20); BUN (Urea Nitrogen) 36 mg/dL (8.4-25.7); Calc. Creatinine Clearance 68 mL/min (70-130); Calcium 8.8 mg/dL (7.8-10.44); Carbon Dioxide 26 mmol/L (23-31); Chloride 99 mmol/L (98-107); Estimated GFR 51; Glucose 64 mg/dL (83-110); Potassium 3.7 mmol/L (3.5-5.1); Sodium 133 mmol/L (136-145)
[2023-02-12] MEDS: Empagliflozin 10 MG TAB PO SCH (09:42)
[2023-02-12] MEDS: Aspirin Chewable 81 MG TAB PO SCH (09:42)
[2023-02-12] MEDS: Gabapentin 100 MG CAP PO SCH (09:42)
[2023-02-12] MEDS: Divalproex Sodium 250 MG (DR) TAB PO SCH ×2 (09:42→21:16)
[2023-02-12] MEDS ORDERED: Polyethylene Glycol 3350 17 GM Packet PO SCH (19:00)
[2023-02-12] MEDS: Tamsulosin HCl 0.4 MG CAP PO SCH (21:16)
[2023-02-12] MEDS: Atorvastatin Calcium 20 MG TAB PO SCH (21:16)
[2023-02-13 04:16] LABS: #Eosinphils 0.2 thou/uL (0.0-0.7); #Monocytes 0.9 thou/uL (0.11-0.59); #Neutrophils 3.7 thou/uL (1.40-6.50); %Basophils 0.4 % (0.0-1.0); %Eosinophils 2.7 % (0.0-10.0); %Lymphocytes 13.6 % (21.0-51.0); %Monocytes 15.6 % (0.0-10.0); %Neutrophils 67.5 % (42.0-75.0); Hemoglobin 14.5 g/dL (14.0-18.0); Mean Corpuscular HGB CONC 32.3 g/dL (32.0-36.0); Mean Corpuscular Hemoglobin 29.1 pg (27.0-31.0); Mean Platelet Volume 11.1 fL (7.4-10.4); RBC Distribution Width 19.8 % (11.5-14.5); Red Blood Cell (RBC) Count 4.99 mill/uL (4.70-6.10); White Blood Cell (WBC) Count 5.5 10x3/uL (4.8-10.8)
[2023-02-13 04:17] LABS: Platelet Count 66 10x3/uL (130-400)
[2023-02-13 04:33] LABS: Anion Gap 13 mmol/L (10-20); BUN (Urea Nitrogen) 34 mg/dL (8.4-25.7); Calc. Creatinine Clearance 64 mL/min (70-130); Calcium 8.9 mg/dL (7.8-10.44); Carbon Dioxide 22 mmol/L (23-31); Chloride 101 mmol/L (98-107); Estimated GFR 48; Glucose 126 mg/dL (83-110); Potassium 4.7 mmol/L (3.5-5.1); Sodium 131 mmol/L (136-145)
[2023-02-13] MEDS: Aspirin Chewable 81 MG TAB PO SCH (09:28)
[2023-02-13] MEDS: Divalproex Sodium 250 MG (DR) TAB PO SCH ×2 (09:28→20:57)
[2023-02-13] MEDS: Gabapentin 100 MG CAP PO SCH (09:28)
[2023-02-13] MEDS: Empagliflozin 10 MG TAB PO SCH (09:28)
[2023-02-13] MEDS: Tamsulosin HCl 0.4 MG CAP PO SCH (20:57)
[2023-02-13] MEDS: Atorvastatin Calcium 20 MG TAB PO SCH (20:57)
[2023-02-14 05:12] LABS: #Eosinphils 0.2 thou/uL (0.0-0.7); #Monocytes 0.9 thou/uL (0.11-0.59); #Neutrophils 3.1 thou/uL (1.40-6.50); %Basophils 0.6 % (0.0-1.0); %Eosinophils 2.9 % (0.0-10.0); %Lymphocytes 19.4 % (21.0-51.0); %Monocytes 17.1 % (0.0-10.0); %Neutrophils 59.6 % (42.0-75.0); Hemoglobin 14.2 g/dL (14.0-18.0); Mean Corpuscular HGB CONC 32.1 g/dL (32.0-36.0); Mean Corpuscular Hemoglobin 29.3 pg (27.0-31.0); Mean Corpuscular Volume 91.1 fl (78.0-98.0); Mean Platelet Volume 12.1 fL (7.4-10.4); RBC Distribution Width 19.8 % (11.5-14.5); Red Blood Cell (RBC) Count 4.85 mill/uL (4.70-6.10); White Blood Cell (WBC) Count 5.2 10x3/uL (4.8-10.8)
[2023-02-14 05:27] LABS: Platelet Count 77 10x3/uL (130-400)
[2023-02-14 05:32] LABS: Anion Gap 16 mmol/L (10-20); BUN (Urea Nitrogen) 40 mg/dL (8.4-25.7); Calc. Creatinine Clearance 52 mL/min (70-130); Carbon Dioxide 24 mmol/L (23-31); Chloride 96 mmol/L (98-107); Estimated GFR 39; Glucose 96 mg/dL (83-110); Potassium 4.7 mmol/L (3.5-5.1); Sodium 131 mmol/L (136-145)
[2023-02-14] MEDS: Empagliflozin 10 MG TAB PO SCH (08:31)
[2023-02-14] MEDS: Gabapentin 100 MG CAP PO SCH (08:31)
[2023-02-14] MEDS: Aspirin Chewable 81 MG TAB PO SCH (08:31)
[2023-02-14] MEDS: Divalproex Sodium 250 MG (DR) TAB PO SCH ×2 (08:32→20:24)
[2023-02-14] MEDS ORDERED: Sodium Chloride 0.9% 1,000 ML IV SCH (13:30)
[2023-02-14] MEDS ORDERED: Bisacodyl 5 MG TAB PO PRN (19:44)
[2023-02-14] MEDS ORDERED: Polyethylene Glycol 3350 17 GM Packet PO PRN (19:44)
[2023-02-14] MEDS ORDERED: Bisacodyl 5 MG TAB PO SCH (19:45)
[2023-02-14] MEDS: Atorvastatin Calcium 20 MG TAB PO SCH (20:24)
[2023-02-14] MEDS: Tamsulosin HCl 0.4 MG CAP PO SCH (20:24)
[2023-02-15 04:44] LABS: #Eosinphils 0.1 thou/uL (0.0-0.7); #Monocytes 0.7 thou/uL (0.11-0.59); #Neutrophils 3.4 thou/uL (1.40-6.50); %Basophils 0.6 % (0.0-1.0); %Eosinophils 2.4 % (0.0-10.0); %Lymphocytes 12.3 % (21.0-51.0); %Monocytes 14.9 % (0.0-10.0); %Neutrophils 69.4 % (42.0-75.0); Hemoglobin 14.5 g/dL (14.0-18.0); Mean Corpuscular HGB CONC 31.9 g/dL (32.0-36.0); Mean Corpuscular Hemoglobin 28.7 pg (27.0-31.0); Mean Corpuscular Volume 90.1 fl (78.0-98.0); Mean Platelet Volume 11.9 fL (7.4-10.4); RBC Distribution Width 20.2 % (11.5-14.5); Red Blood Cell (RBC) Count 5.05 mill/uL (4.70-6.10)
[2023-02-15 04:57] LABS: Platelet Count 89 10x3/uL (130-400)
[2023-02-15 05:07] LABS: Anion Gap 18 mmol/L (10-20); BUN (Urea Nitrogen) 44 mg/dL (8.4-25.7); Calc. Creatinine Clearance 52 mL/min (70-130); Calcium 8.9 mg/dL (7.8-10.44); Carbon Dioxide 22 mmol/L (23-31); Chloride 96 mmol/L (98-107); Estimated GFR 39; Glucose 98 mg/dL (83-110); Sodium 131 mmol/L (136-145)
[2023-02-15] MEDS: Divalproex Sodium 250 MG (DR) TAB PO SCH (08:48)
[2023-02-15] MEDS: Gabapentin 100 MG CAP PO SCH (08:48)
[2023-02-15] MEDS: Aspirin Chewable 81 MG TAB PO SCH (08:48)
[2023-02-15] MEDS: Empagliflozin 10 MG TAB PO SCH (08:49)
[2023-02-15 15:17] VITALS: BP 98/71; TEMP 97.3
== END 2023-02-15 14:45 | disposition hospice, home (50) | DRG 640 ==
LOC: ERS 18:15 → SUATTDRO 18:15 → CCU 20:58 → ERS 22:08 → CCU 02-08 18:57 → 2NO 02-09 16:32 → UNDODISIN 02-10 16:39
PROVIDERS: ADMIT Family Medicine; ATTEND Internal Medicine
PROC: 3E033XZ Introduction of Vasopressor into Peripheral Vein, Percutaneous Approach (ICD-10-PCS; principal; 2023-02-05)
PROC: 30233J1 Transfusion of Nonautologous Serum Albumin into Peripheral Vein, Percutaneous Approach (ICD-10-PCS; 2023-02-06)
DX: E86.0 Dehydration (principal); I50.23 Acute on chronic systolic (congestive) heart failure; R57.0 Cardiogenic shock; N17.9 Acute kidney failure, unspecified; I13.0 Hypertensive heart and chronic kidney disease with heart failure and stage 1 through stage 4 chronic kidney disease, or unspecified chronic kidney disease; I48.92 Unspecified atrial flutter; E87.1 Hypo-osmolality and hyponatremia; F03.90 Unspecified dementia, unspecified severity, without behavioral disturbance, psychotic disturbance, mood disturbance, and anxiety; E11.22 Type 2 diabetes mellitus with diabetic chronic kidney disease; K21.9 Gastro-esophageal reflux disease without esophagitis; K80.20 Calculus of gallbladder without cholecystitis without obstruction; F17.210 Nicotine dependence, cigarettes, uncomplicated; I25.5 Ischemic cardiomyopathy; R53.81 Other malaise; N18.30 Chronic kidney disease, stage 3 unspecified; Z66 Do not resuscitate; N40.0 Benign prostatic hyperplasia without lower urinary tract symptoms; E11.649 Type 2 diabetes mellitus with hypoglycemia without coma; E87.5 Hyperkalemia; K59.00 Constipation, unspecified; D69.6 Thrombocytopenia, unspecified; Z79.899 Other long term (current) drug therapy; Z79.82 Long term (current) use of aspirin; Z79.4 Long term (current) use of insulin; Z86.73 Personal history of transient ischemic attack (TIA), and cerebral infarction without residual deficits; Z95.810 Presence of automatic (implantable) cardiac defibrillator; Z98.890 Other specified postprocedural states; Z91.198 Patient's noncompliance with other medical treatment and regimen for other reason
CPT/HCPCS: 36415; 36416; 51702; 71045; 80048; 80053; 81001; 82533; 82553; 83605; 83930; 83935; 84300; 84443; 84484; 85025; 85610; 85730; 87040; 87086; 93005; 93010; 96365; 96366; 96368; J0692; J1250; J1644; J1815; J2270; J3370-JW; J3490; J7050; J7131; P9047